=== PATIENT | male | born 1965 | race American Indian/Alaskan Native ===

== ENCOUNTER 2016-08-19 15:22 | Inpatient (IN) | payer MEDICARE, MEDICAID ==
[2016-08-19 15:22] VITALS: BMI 23.7
[2016-08-19] MEDS ORDERED: Sodium Chloride 0.9% 1,000 ML IV ONE (16:10)
[2016-08-19] MEDS ORDERED: Sodium Chloride 0.9% 1,000 ML ONE (16:22)
--- NOTE | 2016-08-19 16:31 | RAD ---
HISTORY: Diabetic COMPARISON: Chest x-ray performed 12/23/12 TECHNIQUE: Chest, one view. FINDINGS: Examination limited by habitus. LUNGS: Bibasilar atelectasis or infiltrates. Small left pleural effusion. No definite pneumothorax. Please note that chest x-ray has limited sensitivity for the detection of pulmonary masses. CARDIOVASCULAR: Cardiomegaly. OSSEOUS STRUCTURES: Degenerative changes. VISUALIZED UPPER ABDOMEN: Unremarkable. OTHER FINDINGS: None. IMPRESSION: Small bibasilar atelectasis or infiltrates. Small left pleural effusion. Cardiomegaly.
[2016-08-19 16:40] LABS: BASO % 0.6 % (0.0-2.0); EOS # 0.2 K/uL (0.0-0.7); HEMATOCRIT 43.5 % (35.0-51.0); LYMPH # 2.5 K/uL (1.0-4.3); MEAN CELL VOLUME 87.3 fL (80.0-94.0); MEAN CORPUSCULAR HEMOGLOBIN 28.7 pg (27.0-31.0); MEAN CORPUSCULAR HGB CONC 32.9 g/dL (33.0-37.0); MEAN PLATELET VOLUME 11.4 fL (7.2-11.7); NRBC % 0.1 % (0.0-2.0); RED CELL DISTRIBUTION WIDTH 13.8 % (11.5-14.5); WHITE BLOOD COUNT 7.7 K/uL (4.8-10.8)
[2016-08-19 16:57] LABS: RBC URINE < 1 /hpf (0-3); URINE BACTERIA RARE (<OCC); URINE BILIRUBIN NEGATIVE (NEGATIVE); URINE BLOOD NEGATIVE (NEGATIVE); URINE COLOR Straw (YELLOW); URINE GLUCOSE (UA) 3+ mg/dL (Normal); URINE KETONE TRACE mg/dL (NEGATIVE); URINE LEUKOCYTE ESTERASE NEG Leu/uL (Negative); URINE PROTEIN NEGATIVE (NEGATIVE); URINE UROBILINOGEN NORMAL mg/dL (0.2-1.0)
[2016-08-19 17:00] LABS: CHLORIDE 93 mmol/L (98-107)
[2016-08-19 17:01] LABS: POTASSIUM 4.8 mmol/L (3.6-5.2); SODIUM 136 mmol/L (132-148)
[2016-08-19 17:03] LABS: ALB/GLOB RATIO 1.2 (1.0-2.1); AST/SGOT 35 U/L (17-59); BILIRUBIN,TOTAL 1.1 mg/dL (0.2-1.3); BLOOD UREA NITROGEN 15 mg/dL (9-20); CARBON DIOXIDE 28 mmol/L (22-30); GFR AFRICAN-AMERICAN > 60; TOTAL PROTEIN 7.6 g/dL (6.3-8.3)
[2016-08-19 17:04] LABS: ALKALINE PHOSPHATASE 130 U/L (38-126); ALT/SGPT 16 U/L (21-72); CALCIUM 8.4 mg/dl (8.6-10.4)
[2016-08-19 17:09] LABS: GLUCOSE,RANDOM 472 mg/dL (75-110)
--- NOTE | 2016-08-19 19:20 | C.PDOC ---
History Of Present Illness 51 y/o male presents to the ED with complains of hyperglycemia. Pt was seen by Dr Lopez with BGL in 400s, advised to go to ED for evaluation. states patient's BGL is typically in the high 200s but over the past few weeks has been in low 300s. Pt is taking same medications, no changes. Denies fever, chills, headache, vomiting or non compliance . Time Seen by Provider: 08/19/16 16:04 Chief Complaint (Nursing): High Blood Sugar History Per: Patient History/Exam Limitations: no limitations Severity: Mild Associated Infectious Symptoms: denies: Nausea, Vomiting Treatment Prior To Provider Evaluation: None Recent travel outside of the [place]: No Past Medical History Reviewed: Historical Data, Nursing Documentation, Vital Signs Vital Signs: Last Vital Signs Temp 98.3 F 08/19/16 15:53 Pulse 73 08/19/16 15:53 Resp 97 H 08/19/16 15:53 BP 111/73 08/19/16 15:53 Pulse Ox 20 L 08/19/16 19:27 - Medical History PMH: Asthma, Diabetes, HTN Surgical History: Cholecystectomy Family History: States: Unknown Family Hx - Social History Hx Tobacco Use: Yes Hx Alcohol Use: No Hx Substance Use: No - Immunization History Hx Pneumococcal Vaccination: Yes Review Of Systems Except As Marked, All Systems Reviewed And Found Negative. Constitutional: Negative for: Fever, Chills Gastrointestinal: Negative for: Vomiting Neurological: Negative for: Headache Physical Exam - Physical Exam Appears: Non-toxic, No Acute Distress Skin: Warm, Dry, No Rash Head: Atraumatic, Normacephalic Nose: Normal Oral Mucosa: Moist Neck: Normal ROM, Supple Chest: Symmetrical Cardiovascular: Rhythm Regular, No Murmur Respiratory: Normal Breath Sounds, No Rales, No Rhonchi, No Wheezing Gastrointestinal/Abdominal: Soft, No Tenderness, No Guarding Neurological/Psych: Oriented x3, Normal Speech Gait: Steady ED Course And Treatment - Laboratory Results Result Diagrams: 08/19/16 16:35 08/19/16 16:35 O2 Sat by Pulse Oximetry: 20 (on room air) Pulse Ox Interpretation: Normal (Entered in error, 97 pulse ox*) - Other Rad CXR X-Ray: Viewed By Me, Read By Radiologist Interpretation: Accession No. : [id number]. Patient Name / ID : MORALES TAM / [id number]. Exam Date : 08/19/2016 16:21:05 ( Approved ). Study Comment : Sex / Age : M / 51Y. Creator : Criselda Doshi MD. Dictator : Criselda Doshi MD. Real Estate Representative : Rn Delivery : Criselda Doshi MD. Approver2 : Report Date : 08/19/2016 16:29:17. My Comment : . HISTORY: Diabetic. COMPARISON: Chest x-ray performed 12/23/12. TECHNIQUE: Chest, one view. FINDINGS: Examination limited by habitus. LUNGS : Bibasilar atelectasis or infiltrates. Small left pleural effusion. No definite pneumothorax. Please note that chest x-ray has limited sensitivity for the detection of pulmonary masses. CARDIOVASCULAR: Cardiomegaly. OSSEOUS STRUCTURES: Degenerative changes. VISUALIZED UPPER ABDOMEN: Unremarkable. OTHER FINDINGS: None. IMPRESSION: Small bibasilar atelectasis or infiltrates. Small left pleural effusion. Cardiomegaly. Progress Note: Medicated with insulin and fluids Medical Decision Making Medical Decision Making: Plan: EKG, IV fluids, CXR, labs, UA sugar down to mid 300's Case discussed with dr Boo, recommended observation to start insulin Disposition - Disposition Disposition: HOSPITALIZED Disposition Time: 18:30 Condition: GOOD - Clinical Impression Clinical Impression: Hyperglycemia - Scribe Statement The provider has reviewed the documentation as recorded by the Maryellen Cotto Provider Attestation: All medical record entries made by the Maryellen were at my direction and personally dictated by me. I have reviewed the chart and agree that the record accurately reflects my personal performance of the history, physical exam, medical decision making, and the department course for this patient. I have also personally directed, reviewed, and agree with the discharge instructions and disposition. Decision To Admit - Pt Status Changed To: Hospital Disposition Of: Observation - . Bed Request Type: Regular Admitting Physician: Eduardo Lopez Patient Diagnosis: Hyperglycemia
[2016-08-19] MEDS ORDERED: diltiaZEM 240 mg/24 Hours CD Cap PO SCH (22:00)
[2016-08-19] MEDS ORDERED: Divalproex 500 mg ER Tab PO SCH (22:00)
[2016-08-19] MEDS: (Novolog) Insulin Aspart, Recombinant 100 u/ml 10 ml vial SC SCH (22:37)
[2016-08-20] MEDS: (Novolog) Insulin Aspart, Recombinant 100 u/ml 10 ml vial SC SCH (08:18)
[2016-08-20 12:05] LABS: HEMATOCRIT 44.7 % (35.0-51.0); MEAN CELL VOLUME 87.5 fL (80.0-94.0); MEAN CORPUSCULAR HEMOGLOBIN 28.8 pg (27.0-31.0); MEAN CORPUSCULAR HGB CONC 32.9 g/dL (33.0-37.0); MEAN PLATELET VOLUME 11.1 fL (7.2-11.7); RED CELL DISTRIBUTION WIDTH 13.7 % (11.5-14.5); WHITE BLOOD COUNT 6.3 K/uL (4.8-10.8)
[2016-08-20 12:15] LABS: CHLORIDE 95 mmol/L (98-107); POTASSIUM 3.7 mmol/L (3.6-5.2); SODIUM 138 mmol/L (132-148)
[2016-08-20 12:17] LABS: ALB/GLOB RATIO 1.2 (1.0-2.1); BILIRUBIN,TOTAL 0.6 mg/dL (0.2-1.3); CARBON DIOXIDE 27 mmol/L (22-30); CHOLESTEROL 172 mg/dL (0-199); GFR AFRICAN-AMERICAN > 60; TOTAL PROTEIN 7.2 g/dL (6.3-8.3)
[2016-08-20 12:18] LABS: ALKALINE PHOSPHATASE 100 U/L (38-126); ALT/SGPT 24 U/L (21-72); AST/SGOT 23 U/L (17-59); BLOOD UREA NITROGEN 11 mg/dL (9-20); GLUCOSE,RANDOM 388 mg/dL (75-110)
[2016-08-20] MEDS: Pantoprazole 40 mg EC Tab PO SCH (12:36)
[2016-08-20] MEDS: diltiaZEM 240 mg/24 Hours CD Cap PO SCH (12:37)
[2016-08-20] MEDS: Divalproex 500 mg ER Tab PO SCH ×3 (12:38→19:11)
[2016-08-20] MEDS: (Novolin R) Insulin Human Regular 100 units/ml vial SC SCH ×5 (12:39→22:02)
--- NOTE | 2016-08-20 14:38 | CON ---
DATE: 08/20/2016 CHIEF COMPLAINT AND REASON FOR CONSULTATION: The patient referred by Dr. Lopez. The patient has history of schizophrenia and was admitted for uncontrolled diabetes. The patient is on multiple psych meds. HISTORY OF PRESENT ILLNESS: This is the case of a 51-year-old male with history of schizophrenia, has been taking Risperdal since 2012. The patient has been followed by Dr. Lopez and patient was referred here for admission for uncontrolled diabetes. According to the mother, who has been checking the patient's blood sugar, the sugar has been running as high as 400-500 for the last 2 weeks. The patient has been on psych medication for since 2012 after his admission in [facility], where he was there also for outpatient followup and completed it, but not currently seeing a psychiatrist. The patient is taking Risperdal 1 mg b.i.d., Depakote 500 mg 3 times a day. The patient was also given Ativan 1 mg at bedtime and also Viibryd 20 mg at bedtime. The patient states he is not depressed, but concerned about his uncontrolled diabetes. According to the mother, patient has been drinking soda and also while in the hospital, according to the staff, he has been drinking a lot of juices. The patient also eats a lot of carbohydrates. He said he is feeling very hungry since taking Depakote. Mother is asking for some adjustment of patient's meds, especially since the patient is diabetic. According to the patient, he was not a diabetic prior to treatment with psych medications for his schizophrenia. Today, he is calm, cooperative. He said he will try to cut down drinking soda and juices as well as to cut down eating bread. He is calm. He is seen in the room, seen with his mom and cooperative. The patient is aware that his hemoglobin A1c is markedly elevated. It was 12 , but he is not exhibiting any psychosis at this time. No hallucinations, no paranoia and sleeping and has a very voracious appetite. PAST PSYCHIATRIC HISTORY: History of schizophrenia. He used to hear voices in the past, but has not been hearing voices. History of psych admission in [facility] and outpatient program. No suicidal history. ALLERGIES: No known drug allergies. DRUG AND ALCOHOL HISTORY: Denies any. PAST MEDICAL HISTORY: History of hyperglycemia. FAMILY HISTORY: There is history of patient's dad was diabetic. CURRENT MEDICATIONS: List includes Cozaar, Crestor, Depakote 500 mg 3 times a day, Lantus, Novolin, Protonix, Risperdal 1 mg b.i.d., Tricor. VITAL SIGNS: Temperature is 98.2, pulse rate is 93, blood pressure is 113/78, respirations 20, oxygen sat is 96%. LABORATORIES: On review, on admission the blood sugar was 472. The random blood sugar is 388. Hemoglobin A1c is markedly elevated at 12. His creatinine is 0.9, GFR is still greater than 60. Triglycerides are 371, cholesterol is 172. UA is +3 for glucose. Toxicology, negative for drugs. REVIEW OF SYSTEMS: GENERAL: The patient is alert, oriented x 3, calm, seen with his mother. The patient is aware that he is diabetic. SKIN: No pruritus. HEENT: No headache, no dizziness. NECK: Supple. RESPIRATORY: No dyspnea. CARDIOVASCULAR: No chest pain. GASTROINTESTINAL: The patient is complaining he is always hungry. EXTREMITIES: The patient is ambulatory. MUSCULOSKELETAL: Weakness improving. NEUROLOGIC: Alert and oriented x 3. GENITOURINARY: Complaining of frequent urination. MENTAL STATUS EXAMINATION: A burly-looking male who looks stated age. He is about 5 feet 5 inches and weighs 235 pounds. Oriented x 3. Speech spontaneous. Affect is reactive. Mood is calm. Thought process coherent. Thought content: No hallucinations, no suicidal or homicidal ideation, no paranoia. Attention and memory seem to be fair. Insight and judgment fair. Impulse control is fair. IMPRESSION: History of chronic paranoid schizophrenia as well as uncontrolled diabetes. PLAN AND RECOMMENDATION: The patient seen, meds reviewed. We will continue the Risperdal 1 mg b.i.d. and Depakote 500 mg p.o. t.i.d. for now. We will keep patient off the Ativan 1 mg at bedtime and the Viibryd, which he was taking at home. The patient is made aware as well as the mother that the Risperdal he has been taking can cause him to have diabetes as a side effect. The patient has a history of chronic mental illness and needs this Risperdal right now. Otherwise, the patient will decompensate and start hearing voices, but patient is aware of the need of taking Risperdal as well as the possible side effects of having uncontrolled blood sugar as a result of the maintenance treatment of his Risperdal for schizophrenia. May continue the Depakote 500 mg p.o. t.i.d. for mood stabilization; however, this medicine can increase his appetite, which might make the blood sugar difficult to control, but patient needs this and has been taking this for a while for mood stabilization. Also, monitor his Depakote level, CBC, liver function test. 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 The patient will need diabetic teaching, especially in his diet as patient needs to watch and be more careful of what he eats, especially that he is having uncontrolled diabetes and also taking psych medications, which can increase his appetite. The patient states he is always hungry. Continue treatment plan as outlined. Jarad Sharma MD cc: [id number] TT: 08/20/2016 14:37:26 Confirmation # [id number] Dictation # [id number] en MTDD
[2016-08-20] MEDS ORDERED: (Lantus) Insulin Glargine, Recombinant SC SCH (22:00)
--- NOTE | 2016-08-20 22:10 | CP.PCM.CON ---
History of Present Illness - History of Present Illness History of Present Illness: uncontrolled DM Past Patient History - Past Social History Smoking Status: Current Some Days Smoker - CARDIAC Hx Hypertension: Yes - PULMONARY Hx Asthma: Yes - ENDOCRINE/METABOLIC Hx Diabetes Mellitus Type 2: Yes - MUSCULOSKELETAL/RHEUMATOLOGICAL Hx Falls: No - PSYCHIATRIC Hx Substance Use: No - SURGICAL HISTORY Hx Cholecystectomy: Yes - ANESTHESIA Hx Anesthesia: Yes Hx Anesthesia Reactions: Yes Hx Malignant Hyperthermia: Yes Has any member of the family had a problem w/ anesthesia?: No Meds Allergies/Adverse Reactions: Allergies Allergy/AdvReac Type Severity Reaction Status Date / Time No Known Allergies Allergy Unverified 12/12/12 10:04 - Medications Medications: Current Medications Diltiazem HCl (Cardizem Cd) 240 mg PO DAILY [facility] Last Admin: 08/20/16 12:37 Dose: 240 mg Divalproex Sodium (Depakote Er) 500 mg PO TID [facility] Last Admin: 08/20/16 19:11 Dose: 500 mg Fenofibrate (Tricor) 145 mg PO QPM [facility] Last Admin: 08/20/16 17:57 Dose: 145 mg Heparin Sodium (Porcine) (Heparin) 5,000 units SC Q12H [facility] Last Admin: 08/20/16 17:58 Dose: 5,000 units Influenza Virus Vaccine (Afluria) 45 mcg IM .ONCE ONE Stop: 08/21/16 10:01 Insulin Glargine (Lantus) 15 unit SC HS [facility] Last Admin: 08/20/16 22:03 Dose: 15 units Insulin Human Regular (Novolin R) 0 unit SC ACHS [facility] PRN Reason: Protocol Last Admin: 08/20/16 22:02 Dose: 2 unit Insulin Human Regular (Novolin R) 4 unit SC TIDAC [facility] Last Admin: 08/20/16 16:40 Dose: 4 unit Losartan Potassium (Cozaar) 100 mg PO DAILY [facility] Last Admin: 08/20/16 12:42 Dose: 100 mg Metoprolol Tartrate (Lopressor) 25 mg PO BID [facility] Last Admin: 08/20/16 17:58 Dose: 25 mg Pantoprazole Sodium (Protonix Ec Tab) 40 mg PO DAILY [facility] Last Admin: 08/20/16 12:36 Dose: 40 mg Pneumococcal Polyvalent Vaccine (Pneumovax 23 Vaccine) 0.5 ml IM .ONCE ONE Stop: 08/21/16 10:01 Risperidone (Risperdal Tab) 1 mg PO BID [facility] Last Admin: 08/20/16 17:58 Dose: 1 mg Rosuvastatin Calcium (Crestor) 10 mg PO HS [facility] Last Admin: 08/20/16 22:01 Dose: 10 mg Results - Vital Signs Recent Vital Signs: Last Vital Signs Temp 98.2 F 08/20/16 16:00 Pulse 93 H 08/20/16 17:19 Resp 20 08/20/16 16:00 BP 148/90 08/20/16 17:58 Pulse Ox 97 08/20/16 16:00 - Labs Result Diagrams: 08/20/16 11:58 08/20/16 11:58 Labs: Laboratory Results - last 24 hr 08/20/16 21:32 POC Glucose (mg/dL) 389 H Assessment & Plan (1) Uncontrolled diabetes mellitus Assessment and Plan: Endocrine consult reason for consult: uncontrolled diabetes Mr. Valdez is 51 y/o admitted for hyperglycemia , found with glucose 472 ( refered by PCP ) glucose in 200-300 @ home with polyuria & polydepsia as per pt. has DM 2016 (-) neuropathy , (-) retinopathy , (-) nephropathy , outpatient diabetes management regimen : not sure of medications inpatient diabetes management regimen : novolog scale blood glucose log : 200-300 NO hypoglycemia Allergy NKDA Past medical history : HTN Past surgical history : cholecystectomy Psychiatry history : (+) psychiatry disorder Social history : denies smoking , ETOH use , illicit drug use Family history : father with DM ROS: Constitutional: denies fever ,tiredness/weakness .HEENT: denies earache, change in voice .Respiratory: denies cough, sob . CVS :no chest pain, no palpitations . Abdomen : no abdominal pain, no nausea /vomiting , no change bowel movement . 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 Extremities : no edema , no tremors . Skin: no itching, no rash Physical exam Well developed AAO x3 , ,NAD VSS HEENT: norm cephalic, atraumatic , no lid lag , no exophthalmos NECK: supple, no palpable lymphadenopathy THYROID: no palpable thyromegaly , not tender CHEST: fair air entry, bilateral, CVS: S1,S2 ABDOMEN: bowel sound present, benign, obese, no wide purple striae , no bruises EXTREMITIES: no edema, clubbing or cyanosis, no palpable hand tremors Skin : acanthosis nigricans lab: tsh 1.38 a1c 12 , cmp wnl , tg 371, ldl 88 Assessment uncontrolled DM hypertriglyceridemia obesity plan start lantus 15 units @ 9pm daily d/c Novolog start Novoloin R low dose coverage, no 3 am coverage start novoloin R 4 units tid with meals if eat > 60% start metformin 500 mg po tid with meals low fat diet on fenofiberate qd diabetic & nutrtional evalustion insulin injection education will monitor Status: Acute (2) Obesity (BMI 30-39.9) Status: Acute (3) Hypertriglyceridemia Status: Acute
[2016-08-21] MEDS: (Novolin R) Insulin Human Regular 100 units/ml vial SC SCH ×7 (09:09→21:39)
[2016-08-21] MEDS: Pantoprazole 40 mg EC Tab PO SCH (09:11)
[2016-08-21] MEDS: Divalproex 500 mg ER Tab PO SCH ×3 (09:11→17:23)
[2016-08-21] MEDS: diltiaZEM 240 mg/24 Hours CD Cap PO SCH (09:12)
[2016-08-21] MEDS ORDERED: Pneumococcal 23-Valent Vaccine IM ONE (10:00)
[2016-08-21] MEDS ORDERED: Influenza Virus Vaccine 45 mcg/0.5 ml Syr IM ONE (10:00)
--- NOTE | 2016-08-21 15:01 | CARD ---
APPROVED REPORT EKG Measurement Heart [id number] ND 190P50 [id number] <Conclusion> Normal sinus rhythm Incomplete right bundle branch block Cannot rule out Inferior infarct, age undetermined Abnormal ECG
--- NOTE | 2016-08-21 16:29 | PN ---
DATE: 08/21/2016 SUBJECTIVE: The patient is seen. The patient's blood sugar seems to be improving, in the high 200s. TSH is 1.38. 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 The patient states that he is able to give insulin by himself. The patient advised also to follow his diet restriction. Psych-aguirre, the patient is not exhibiting any psychotic symptoms at this time. He is stable on Risperdal and Depakote. The patient advised to watch his diet as both medications can increase the appetite. He is not exhibiting any psych symptoms at this time. VITAL SIGNS: Temperature is 98, pulse rate 79, blood pressure 125/77, respirations 20, oxygen sat is 97%. REVIEW OF SYSTEMS: GENERAL: Alert and oriented x 3, seen in his room, resting. Not in acute respiratory distress. SKIN: No diaphoresis. HEENT: No headache, no dizziness. NECK: Supple. RESPIRATORY: No dyspnea. CARDIOVASCULAR: No chest pain. GASTROINTESTINAL: No nausea, no vomiting. The patient states that he is able to control his craving for food. EXTREMITIES: No tremors. MUSCULOSKELETAL: Feels weak. NEUROLOGIC: Alert, oriented x 3. GENITOURINARY: No complaining of dysuria, but still has polyuria. MENTAL STATUS EXAMINATION: A burly-looking male who looks stated age, oriented x 3. Speech spontaneous. Affect is reactive. Mood is calm. Thought process coherent. Thought content: No hallucinations, no paranoia, no suicidal or homicidal ideation. Attention and memory seems to be fair. Insight and judgment fair. Impulse control is fair. The patient has been compliant with his psychiatric medications. IMPRESSION: History of chronic paranoid schizophrenia as well as uncontrolled diabetes. PLAN AND RECOMMENDATIONS: The patient seen, meds reviewed. Continue present psych meds. The patient is on Depakote and Risperdal. The patient has been followed by Dr. Alexander for his diabetes. Monitor blood sugar. Continue treatment plan as outlined. Jarad Sharma MD cc: [id number] TT: 08/21/2016 16:28:30 Confirmation # [id number] Dictation # [id number] [facility]
[2016-08-21] MEDS ORDERED: (Lantus) Insulin Glargine, Recombinant SC SCH (19:36)
--- NOTE | 2016-08-21 19:42 | CP.PCM.PN ---
Subjective - Date & Time of Evaluation Date of Evaluation: 08/21/16 Time of Evaluation: 19:40 - Subjective Subjective: uncontrolled dm Objective - Vital Signs/Intake and Output Vital Signs (last 24 hours): Temp Pulse Resp BP Pulse Ox 98 F 79 23 143/87 94 L 08/21/16 16:00 08/21/16 16:00 08/21/16 16:00 08/21/16 17:23 08/21/16 16:00 Intake and Output: 08/21/16 08/22/16 18:59 06:59 Intake Total 500 Balance 500 - Medications Medications: Current Medications Diltiazem HCl (Cardizem Cd) 240 mg PO DAILY [facility] Last Admin: 08/21/16 09:12 Dose: 240 mg Divalproex Sodium (Depakote Er) 500 mg PO TID [facility] Last Admin: 08/21/16 17:23 Dose: 500 mg Fenofibrate (Tricor) 145 mg PO QPM [facility] Last Admin: 08/20/16 17:57 Dose: 145 mg Heparin Sodium (Porcine) (Heparin) 5,000 units SC Q12H [facility] Last Admin: 08/21/16 17:23 Dose: 5,000 units Insulin Glargine (Lantus) 18 unit SC HS [facility] Insulin Human Regular (Novolin R) 0 unit SC ACHS [facility] PRN Reason: Protocol Last Admin: 08/21/16 17:31 Dose: 4 unit Insulin Human Regular (Novolin R) 7 unit SC TIDAC [facility] Losartan Potassium (Cozaar) 100 mg PO DAILY [facility] Last Admin: 08/21/16 09:12 Dose: 100 mg Metformin HCl (Glucophage) 500 mg PO TID [facility] Last Admin: 08/21/16 17:24 Dose: 500 mg Metoprolol Tartrate (Lopressor) 25 mg PO BID [facility] Last Admin: 08/21/16 17:23 Dose: 25 mg Pantoprazole Sodium (Protonix Ec Tab) 40 mg PO DAILY [facility] Last Admin: 08/21/16 09:11 Dose: 40 mg Risperidone (Risperdal Tab) 1 mg PO BID [facility] Last Admin: 08/21/16 17:24 Dose: 1 mg Rosuvastatin Calcium (Crestor) 10 mg PO HS [facility] Last Admin: 08/20/16 22:01 Dose: 10 mg Assessment and Plan (1) Uncontrolled diabetes mellitus Assessment & Plan: Endocrine consult f/u reason for consult: uncontrolled diabetes Mr. Valdez is 51 y/o admitted for hyperglycemia , found with glucose 472 ( refered by PCP ) glucose in 200-300 @ home with polyuria & polydepsia as per pt. has DM 2016 (-) neuropathy , (-) retinopathy , (-) nephropathy , outpatient diabetes management regimen : not sure of medications inpatient diabetes management regimen : novolog scale blood glucose log : 200-300 NO hypoglycemia Allergy NKDA Past medical history : HTN Past surgical history : cholecystectomy Psychiatry history : (+) psychiatry disorder Social history : denies smoking , ETOH use , illicit drug use Family history : father with DM ROS: Constitutional: denies fever ,tiredness/weakness .HEENT: denies earache, change in voice .Respiratory: denies cough, sob . CVS :no chest pain, no palpitations . Abdomen : no abdominal pain, no nausea /vomiting , no change bowel movement . 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 Extremities : no edema , no tremors . Skin: no itching, no rash Physical exam Well developed AAO x3 , ,NAD VSS HEENT: norm cephalic, atraumatic , no lid lag , no exophthalmos NECK: supple, no palpable lymphadenopathy THYROID: no palpable thyromegaly , not tender CHEST: fair air entry, bilateral, CVS: S1,S2 ABDOMEN: bowel sound present, benign, obese, no wide purple striae , no bruises EXTREMITIES: no edema, clubbing or cyanosis, no palpable hand tremors Skin : acanthosis nigricans lab: tsh 1.38 a1c 12 , cmp wnl , tg 371, ldl 88 Assessment uncontrolled DM hypertriglyceridemia obesity plan increase lantus 18 units @ 9pm daily continue Novoloin R low dose coverage, no 3 am coverage increase novoloin R 7 units tid with meals if eat > 60% continue metformin 500 mg po tid with meals low fat diet on fenofiberate qd diabetic & nutrtional evalustion insulin injection education will monitor Status: Acute (2) Obesity (BMI 30-39.9) Status: Acute (3) Hypertriglyceridemia Status: Acute
[2016-08-22 07:41] LABS: CHLORIDE 99 mmol/L (98-107)
[2016-08-22 07:42] LABS: POTASSIUM 3.6 mmol/L (3.6-5.2); SODIUM 138 mmol/L (132-148)
[2016-08-22 07:44] LABS: BILIRUBIN,TOTAL 0.7 mg/dL (0.2-1.3); CARBON DIOXIDE 24 mmol/L (22-30); GFR AFRICAN-AMERICAN > 60
[2016-08-22 07:45] LABS: ALB/GLOB RATIO 1.2 (1.0-2.1); ALKALINE PHOSPHATASE 90 U/L (38-126); ALT/SGPT 26 U/L (21-72); AST/SGOT 18 U/L (17-59); BLOOD UREA NITROGEN 15 mg/dL (9-20); CALCIUM 8.6 mg/dl (8.6-10.4); GLUCOSE,RANDOM 310 mg/dL (75-110); TOTAL PROTEIN 6.3 g/dL (6.3-8.3)
[2016-08-22 07:46] LABS: BASO % 0.8 % (0.0-2.0); EOS # 0.2 K/uL (0.0-0.7); EOS % 2.7 % (0.0-4.0); HEMATOCRIT 42.3 % (35.0-51.0); LYMPH # 2.4 K/uL (1.0-4.3); MEAN CELL VOLUME 86.2 fL (80.0-94.0); MEAN CORPUSCULAR HGB CONC 33.6 g/dL (33.0-37.0); MEAN PLATELET VOLUME 11.9 fL (7.2-11.7); MONO # 0.7 K/uL (0.0-0.8); MONO % 10.5 % (0.0-10.0); NRBC % 0.1 % (0.0-2.0); RED CELL DISTRIBUTION WIDTH 13.8 % (11.5-14.5); WHITE BLOOD COUNT 6.4 K/uL (4.8-10.8)
[2016-08-22] MEDS: (Novolin R) Insulin Human Regular 100 units/ml vial SC SCH ×7 (08:24→21:33)
[2016-08-22] MEDS: Divalproex 500 mg ER Tab PO SCH ×3 (10:34→17:17)
[2016-08-22] MEDS: Pantoprazole 40 mg EC Tab PO SCH (10:35)
[2016-08-22] MEDS: diltiaZEM 240 mg/24 Hours CD Cap PO SCH (10:35)
--- NOTE | 2016-08-22 13:59 | PN ---
DATE: 08/22/2016 SUBJECTIVE: The patient is seen. The patient, psych aguirre, is in control. However, his blood sugar is still markedly elevated. Last blood sugar was above 300, The patient is insisting he is not cheating on his diet. The patient also claims he is able to administer insulin by himself, but according to the mother, patient cannot do it. The patient has a history of schizophrenia and needs help from his mom, especially if he is going to have insulin treatment. The patient claims he can give insulin, but has not tried. The patient also has history of noncompliance with diet restriction. He claims he is always hungry. I did discuss with the patient as well as with the mother about his psych medication and its side effect, which can increase appetite, we will try to control his diabetes first before we change his psych medication. He has been stable on his medicine for years and I am afraid that he might psychiatrically decompensate if I will change the medicine, which will make the situation worse. He is sleeping and eating well and we will keep him on the current dose of Depakote and Risperdal and just treat his diabetes for now. VITAL SIGNS: Temperature is 97.6, pulse rate is 85, blood pressure 133/78, respirations 20, oxygen sat is 97%. REVIEW OF SYSTEMS: GENERAL: He was seen in his room, eating. The patient is made aware his blood sugar is still elevated and patient insisting he is not cheating on his diet and not drinking a lot of juices. SKIN: No diaphoresis. HEENT: No blurring vision, no headache. NECK: Supple. RESPIRATORY: No dyspnea. CARDIOVASCULAR: No chest pain. GASTROINTESTINAL: He has very good appetite. No nausea, no vomiting. EXTREMITIES: The patient is ambulatory. GENITOURINARY: He still has polyuria. MUSCULOSKELETAL: Weakness improving. NEUROLOGIC: Alert and oriented x 3. MENTAL STATUS EXAMINATION: Burly looking male who looks stated age, oriented x 3. Mood is calm. Affect is reactive. Speech spontaneous. Thought process coherent. Thought content: No paranoia. No suicidal or homicidal ideation. No hallucinations. Attention and memory seem to be fair. Insight and judgment limited. Impulse control is fair at this time. IMPRESSION: History of chronic paranoid schizophrenia as well as uncontrolled diabetes. PLAN AND RECOMMENDATIONS: The patient seen, meds reviewed. Continue present psych meds. We will monitor his blood sugar. Also, patient has been followed by Dr. Alexander, who would like to do a Depakote level on him as the patient is taking Depakote. Jarad Sharma MD cc: [id number] TT: 08/22/2016 13:59:00 Confirmation # [id number] Dictation # [id number] en MTDD
[2016-08-22] MEDS ORDERED: (Lantus) Insulin Glargine, Recombinant SC SCH ×2 (21:05→22:00)
--- NOTE | 2016-08-22 21:14 | CP.PCM.PN ---
Subjective - Date & Time of Evaluation Date of Evaluation: 08/22/16 Time of Evaluation: 21:11 - Subjective Subjective: uncontrolled dm Objective - Vital Signs/Intake and Output Vital Signs (last 24 hours): Temp Pulse Resp BP Pulse Ox 98.2 F 82 20 144/88 96 08/22/16 16:00 08/22/16 16:00 08/22/16 16:00 08/22/16 16:00 08/22/16 16:00 Intake and Output: 08/22/16 08/23/16 18:59 06:59 Intake Total 600 Balance 600 - Medications Medications: Current Medications Diltiazem HCl (Cardizem Cd) 240 mg PO DAILY [facility] Last Admin: 08/22/16 10:35 Dose: 240 mg Divalproex Sodium (Depakote Er) 500 mg PO TID [facility] Last Admin: 08/22/16 17:17 Dose: 500 mg Fenofibrate (Tricor) 145 mg PO QPM [facility] Last Admin: 08/22/16 17:17 Dose: 145 mg Heparin Sodium (Porcine) (Heparin) 5,000 units SC Q12H [facility] Last Admin: 08/22/16 17:17 Dose: 5,000 units Insulin Glargine (Lantus) 20 unit SC HS [facility] Insulin Human Regular (Novolin R) 0 unit SC ACHS [facility] PRN Reason: Protocol Last Admin: 08/22/16 17:18 Dose: 3 unit Insulin Human Regular (Novolin R) 7 unit SC TIDAC [facility] Last Admin: 08/22/16 17:19 Dose: 7 unit Losartan Potassium (Cozaar) 100 mg PO DAILY [facility] Last Admin: 08/22/16 10:36 Dose: 100 mg [facility] Metoprolol Tartrate (Lopressor) 25 mg PO BID [facility] Last Admin: 08/22/16 10:36 Dose: 25 mg Pantoprazole Sodium (Protonix Ec Tab) 40 mg PO DAILY [facility] Last Admin: 08/22/16 10:35 Dose: 40 mg Risperidone (Risperdal Tab) 1 mg PO BID [facility] Last Admin: 08/22/16 17:17 Dose: 1 mg Rosuvastatin Calcium (Crestor) 10 mg PO HS [facility] Last Admin: 08/21/16 21:38 Dose: 10 mg Sitagliptin Phosphate (Januvia) 100 mg PO BRK [facility] - Labs Labs: 08/22/16 07:09 08/22/16 07:09 Assessment and Plan (1) Uncontrolled diabetes mellitus Assessment & Plan: Assessment & Plan: Endocrine consult f/u reason for consult: uncontrolled diabetes Mr. Valdez is 51 y/o admitted for hyperglycemia , found with glucose 472 ( refered by PCP ) glucose in 200-300 @ home with polyuria & polydepsia as per pt. has DM 2016 (-) neuropathy , (-) retinopathy , (-) nephropathy , outpatient diabetes management regimen : not sure of medications inpatient diabetes management regimen : novolog scale blood glucose log : 200 NO hypoglycemia Allergy NKDA Past medical history : HTN Past surgical history : cholecystectomy Psychiatry history : (+) psychiatry disorder Social history : denies smoking , ETOH use , illicit drug use Family history : father with DM ROS: Constitutional: denies fever ,tiredness/weakness .HEENT: denies earache, change in voice .Respiratory: denies cough, sob . CVS :no chest pain, no palpitations . Abdomen : no abdominal pain, no nausea /vomiting , no change bowel movement . MANAGER ADMINISTRATIVE : denies light-headedness, dizziness. Extremities : no edema , no tremors . Skin: no itching, no rash Physical exam Well developed AAO x3 , ,NAD VSS HEENT: norm cephalic, atraumatic , no lid lag , no exophthalmos NECK: supple, no palpable lymphadenopathy THYROID: no palpable thyromegaly , not tender CHEST: fair air entry, bilateral, CVS: S1,S2 ABDOMEN: bowel sound present, benign, obese, no wide purple striae , no bruises EXTREMITIES: no edema, clubbing or cyanosis, no palpable hand tremors Skin : acanthosis nigricans lab: tsh 1.38 a1c 12 , cmp wnl , tg 371, ldl 88 Assessment uncontrolled DM hypertriglyceridemia psychiatry disorder on meds obesity plan increase lantus 20 units @ 9pm daily continue Novoloin R low dose coverage, no 3 am coverage continue novoloin R 7 units tid with meals if eat > 60% increase metformin 1000 mg po bid with meals start januvia 100 mg po qd with breakfast low fat diet on fenofiberate qd diabetic & nutrtional evalustion insulin injection education will monitor Status: Acute (2) Obesity (BMI 30-39.9) Status: Acute (3) Hypertriglyceridemia Status: Acute
--- NOTE | 2016-08-22 22:21 | PN ---
DATE: 08/22/2016 Today, the patient is more alert and awake. Did not have any shortness of breath, no chest pain. Th e patient had no polyuria today and no polydipsia. VITAL SIGNS: The blood pressure is 144/88, pulse 82, respirations 20, temperature 98.2. NECK: Supple. No JVD. LUNGS: Clear. HEART: Regular rate and rhythm. ABDOMEN: Soft, obese, nontender. EXTREMITIES: There are chronic changes of the skin of the lower extremity. The patient had a blood test done. WBC 6.4, hemoglobin 14.2, hematocrit 42.3 and platelet is 144. C hemistry: Sodium 138, potassium 3.6, chloride of 99, bicarbonate is 24, BUN 15, creatinine 0.7. The glucose is elevated at 310, 256, 299. PLAN: We are going to continue the medications, the insulin, and Lantus will be 50 units, and also w e are going to continue the metformin, and lab will be ordered for tomorrow. Eduardo Lopez MD cc: [id number] TT: 08/22/2016 22:20:16 Confirmation # [id number] Dictation # [id number] mn
[2016-08-23 07:55] LABS: CHLORIDE 98 mmol/L (98-107); POTASSIUM 3.7 mmol/L (3.6-5.2); SODIUM 137 mmol/L (132-148)
[2016-08-23 07:57] LABS: BASO % 0.7 % (0.0-2.0); EOS # 0.2 K/uL (0.0-0.7); EOS % 2.7 % (0.0-4.0); GFR AFRICAN-AMERICAN > 60; HEMATOCRIT 44.2 % (35.0-51.0); LYMPH # 2.9 K/uL (1.0-4.3); LYMPH % 40.2 % (20.0-40.0); MEAN CELL VOLUME 85.9 fL (80.0-94.0); MEAN CORPUSCULAR HEMOGLOBIN 29.1 pg (27.0-31.0); MEAN CORPUSCULAR HGB CONC 33.9 g/dL (33.0-37.0); MEAN PLATELET VOLUME 10.9 fL (7.2-11.7); MONO # 0.8 K/uL (0.0-0.8); MONO % 11.9 % (0.0-10.0); NRBC % 0.1 % (0.0-2.0); RED CELL DISTRIBUTION WIDTH 13.7 % (11.5-14.5); WHITE BLOOD COUNT 7.1 K/uL (4.8-10.8)
[2016-08-23 07:58] LABS: ALB/GLOB RATIO 1.2 (1.0-2.1); ALKALINE PHOSPHATASE 82 U/L (38-126); ALT/SGPT 25 U/L (21-72); AST/SGOT 25 U/L (17-59); BILIRUBIN,TOTAL 0.6 mg/dL (0.2-1.3); BLOOD UREA NITROGEN 16 mg/dL (9-20); CALCIUM 9.3 mg/dl (8.6-10.4); CARBON DIOXIDE 24 mmol/L (22-30); GLUCOSE,RANDOM 245 mg/dL (75-110)
--- NOTE | 2016-08-23 08:13 | HP ---
HISTORY OF PRESENT ILLNESS: The patient is a 51-year-old male with history of hypertension, schizoph roro and diabetes. The patient came to my office with the mother and as per mother, the patient ___ _ frequently and the patient mother stated that the patient is drinking a lot of water and also the s ugar was in the range of 300/350-500. So patient was seen in the office and was found to have ____ h igh when testing the sugar. Attempting to show the mother and the patient how to use insulin and the mother does not look understanding well the technique. So we have decided to send the patient to __ __ for control of the diabetes and for diabetic education. ALLERGIES: The patient has no known allergy. PAST MEDICAL HISTORY: History of schizophrenia, hypertension, diabetes, also history of obesity. MEDICATIONS: The patient was on multiple medications, antipsychotic medication like risperidone and taking also metoprolol and glimepiride, metformin, Janumet. SOCIAL HISTORY: Positive for smoking. No alcohol abuse, no illicit drugs. FAMILY HISTORY: Mother alive and father, does not know. REVIEW OF SYSTEMS: ____ RESPIRATORY: No shortness of breath. CARDIOVASCULAR: No chest pain. GASTROINTESTINAL: Polydipsia. GENITOURINARY: Polyuria. NEUROLOGIC: The patient feels somewhat weak. PHYSICAL EXAMINATION: GENERAL: The patient is alert and awake, but the patient is mentally challenged. VITAL SIGNS: Blood pressure was 148/90, pulse 74, respirations 20, temperature 98.2. HEENT: Head is normocephalic, mouth is moist. NECK: Supple. LUNGS: Clear. HEART: Regular rate and rhythm. ABDOMEN: Soft, obese, nontender. EXTREMITIES: There are some chronic changes of the skin of the lower extremity and also there is +1 pitting edema which is also chronic. The patient mostly sleeps on a chair, which is his preference. LABORATORY DATA: WBC 7.7, hemoglobin 14.3, hematocrit 43.5 and platelet is 150. Chemistry: Sodium 138, potassium 3.7, chloride 95, bicarbonate 27, BUN 11, creatinine 0.9, glucose 388, triglycerides 3 71, HDL 29, LDL 28. AST 23, ALT 24, calcium 9, Total Bilirubin 0.6, hemoglobin A1c is 12. The urine glucose is 3+, and the pH is 6 and urine specific gravity is 1.021. So, patient will be admitted with diagnoses of uncontrolled diabetes, hypertension and schizophrenia, obesity. So the patient will have a consult with Medina Hsieh strategic communications specialist. Also, will have a consult with Dr. Sharma of psychiatry. Eduardo Lopez MD cc: [id number] TT: 08/20/2016 18:42:32 jn 08/23/2016 07:12:24
--- NOTE | 2016-08-23 08:21 | PN ---
DATE: 08/21/2016 SUBJECTIVE: Today, the patient is alert and awake, did not have any shortness of breath, no chest pa in but admits is having in the chest and . VITAL SIGNS: The patient has blood pressure 125/77, pulse is 79, respirations 20 and temperature 98. NECK: Supple. No JVD. LUNGS: Clear. HEART: Regular rate and rhythm. Blood test is done and showed that the blood sugar 283 . Consult is appreciated. consult. 106, 32 . Blood test will be ordered . Eduardo Lopez MD cc: [id number] TT: 08/21/2016 17:13:02 Confirmation # [id number] Dictation # [id number] 08/21/2016 22:22:03
[2016-08-23] MEDS: (Novolin R) Insulin Human Regular 100 units/ml vial SC SCH ×5 (08:28→17:15)
[2016-08-23] MEDS: Divalproex 500 mg ER Tab PO SCH ×3 (10:51→17:16)
[2016-08-23] MEDS: diltiaZEM 240 mg/24 Hours CD Cap PO SCH (10:51)
[2016-08-23] MEDS: Pantoprazole 40 mg EC Tab PO SCH (10:54)
--- NOTE | 2016-08-23 13:08 | CP.PCM.PN ---
Subjective - Date & Time of Evaluation Date of Evaluation: 08/23/16 Time of Evaluation: 10:45 - Subjective Subjective: Pt seen today with Dr. Lopez, comfortable , denies any complaints bs controlled with current regimen Mother taught how to administer insulin ( sergeyo instruction) and successfully returns demonstration All prescription sent to Patient pharmacy and mother instructed to lease picker from pharmacy VNA service arranged for diabetic teaching and insulin administration at home, Objective - Vital Signs/Intake and Output Vital Signs (last 24 hours): Temp Pulse Resp BP Pulse Ox 97.9 F 81 18 145/97 H 97 08/23/16 08:00 08/23/16 08:00 08/23/16 08:00 08/23/16 10:50 08/23/16 08:00 Intake and Output: 08/23/16 08/23/16 06:59 18:59 Intake Total 250 Balance 250 - Medications Medications: Current Medications Diltiazem HCl (Cardizem Cd) 240 mg PO DAILY [facility] Last Admin: 08/23/16 10:51 Dose: 240 mg Divalproex Sodium (Depakote Er) 500 mg PO TID [facility] Last Admin: 08/23/16 10:51 Dose: 500 mg Fenofibrate (Tricor) 145 mg PO QPM [facility] Last Admin: 08/22/16 17:17 Dose: 145 mg Insulin Glargine (Lantus) 20 unit SC HS [facility] Last Admin: 08/22/16 21:32 Dose: 20 u Insulin Human Regular (Novolin R) 0 unit SC ACHS [facility] PRN Reason: Protocol Last Admin: 08/23/16 12:24 Dose: 2 unit Insulin Human Regular (Novolin R) 7 unit SC TIDAC [facility] Last Admin: 08/23/16 12:25 Dose: 7 unit Losartan Potassium (Cozaar) 100 mg PO DAILY [facility] Last Admin: 08/23/16 10:50 Dose: 100 mg Metformin HCl (Glucophage) 1,000 mg PO BIDCC [facility] Last Admin: 08/23/16 08:29 Dose: 1,000 mg Metoprolol Tartrate (Lopressor) 25 mg PO BID [facility] Last Admin: 08/23/16 10:50 Dose: 25 mg Pantoprazole Sodium (Protonix Ec Tab) 40 mg PO DAILY [facility] Last Admin: 08/23/16 10:54 Dose: 40 mg Risperidone (Risperdal Tab) 1 mg PO BID [facility] Last Admin: 08/23/16 10:52 Dose: 1 mg Rosuvastatin Calcium (Crestor) 10 mg PO HS [facility] Last Admin: 08/22/16 21:30 Dose: 10 mg Sitagliptin Phosphate (Januvia) 100 mg PO BRK [facility] Last Admin: 08/23/16 08:29 Dose: 100 mg - Labs Labs: 08/23/16 07:35 08/23/16 07:35
--- NOTE | 2016-08-23 14:32 | PN ---
DATE: 08/23/2016 SUBJECTIVE: The patient will be going home today with his mom. However, the patient is on insulin for his diabetes and does not know how to give any insulin. Mother has been instructed and needs a lot of help as the patient's mom is also having difficulty using the insulin pen as well as how to administer insulin properly. The patient's mom has been instructed by the nurse as the patient cannot do it by himself. He has been compliant with his meds. Blood sugar is still in the 200 range and the patient is still having difficulty not cheating on his diet. VITAL SIGNS: Temperature 97.9, pulse rate is 81, blood pressure is 145/97, respirations 18, oxygen sats 97%. REVIEW OF SYSTEMS: GENERAL: Alert, oriented x 3, ambulatory; seen in his room, eager for discharge. SKIN: No diaphoresis. HEENT: No headache, no dizziness. NECK: Supple. RESPIRATORY: No dyspnea. CARDIOVASCULAR: No chest pain. GASTROINTESTINAL: The patient has a very voracious appetite. No nausea, no vomiting. EXTREMITIES: No tremors. The patient is ambulatory. MUSCULOSKELETAL: Weakness, improving. NEUROLOGIC: Alert and oriented x 3. GENITOURINARY: No urinary problems. MENTAL STATUS EXAMINATION: A bright looking male who looks stated age, oriented x 3. Speech spontaneous. Affect is reactive. Mood is calm. Thought process coherent. Thought content: No paranoia, no hallucination, no suicidal ideation. The patient has been compliant with his psych medication and psych- aguirre is stable. Attention and memory seem to be fair. Insight and judgment limited. Impulse control is fair at this time. IMPRESSION: History of chronic paranoid schizophrenia, stable as well as uncontrolled diabetes. PLAN AND RECOMMENDATIONS: The patient seen, meds reviewed. Continue present psych meds. The patient to follow up with his primary care doctor may benefit from seeing an panel instrument repairer. The patient advised to follow his diet. The patient's mom needs to administer the patient's insulin as the patient cannot do it by himself as the patient seems to be mentally challenged. Jarad Sharma MD cc: [id number] TT: 08/23/2016 14:31:27 Confirmation # [id number] Dictation # [id number] mal[facility]
[2016-08-23 17:09] VITALS: BP 129/78; PULSE 88; RESP 20; TEMP 98.2; O2SAT 95
--- NOTE | 2016-08-24 01:12 | PN ---
DATE: 08/23/2016 Today, patient is alert and awake. Denied any . No weakness. Blood pressure is 129/78, pulse 88, respiration is 20, temperature 98.2. NECK: Supple. No JVD. LUNGS: Clear. HEART: Regular rate and rhythm. ABDOMEN: Soft. Obese, nontender, no palpable mass. EXTREMITIES: There is no edema. The patient had some blood tests done. The WBC is 7.1, hemoglobin 15, hematocrit 44.2, and platelet is 162. Chemistry: Sodium 137, potassium .7, chloride 98, bicarbonate 24, BUN 16, creatinine 0 .9 and glucose is 245. The glucose 244, 241, 242, 201. PLAN: We are going to consider discharging the patient today and diabetic education is done with the mother and the patient. Eduardo Lopez MD cc: [id number] TT: 08/24/2016 01:12:22 Confirmation # [id number] Dictation # [id number] tn
--- NOTE | 2016-08-24 11:02 | DS ---
The patient is a 51-year-old male with history of diabetes and hypertension and a history of schizoph roro. The patient was seen in my office complaining of polyuria and polydipsia. The patient felt s omewhat weak. Also found that the patient had a blood sugar of 400+ at home, and in the office the g lucometer had shown high, so the patient was advised to go to the Emergency Room for evaluation and t he patient was admitted. ALLERGIES: The patient has no known allergy. In the hospital, the patient had a consult with Dr Medina Alexander (supervisor electrolytic tinning), and the patient was put on medication including insulin/ Lantus and also on metformin, plus high blood pressure medicatio n and also Risperdal. The patient also had a consult with Dr. Sharma. So now the blood sugar is somewhat controlled but it is still in the range of 200-240. The patient w as instructed how to do self-injection of insulin and also to do an Accu-Chek. So, the patient at th is point would be able to be discharged home with the mother who was also instructed how to use and t o do the Accu-Chek. So, the patient is going to see me within 1 week. Eduardo Lopez MD cc: [id number] TT: 08/24/2016 11:01:32 mali
== END 2016-08-23 16:15 | disposition home or self-care (01) | DRG 638 ==
LOC: C.ER 15:22 → C.9E 19:51 → C.3T 20:55 → OBSVTOIN 08-20 16:45
PROVIDERS: ADMIT Specialist; ATTEND Specialist
DX: E11.65 Type 2 diabetes mellitus with hyperglycemia (principal); I10 Essential (primary) hypertension; E78.1 Pure hyperglyceridemia; F20.0 Paranoid schizophrenia; J45.909 Unspecified asthma, uncomplicated; E66.9 Obesity, unspecified; Z68.39 Body mass index [BMI] 39.0-39.9, adult; Z23 Encounter for immunization; Z90.49 Acquired absence of other specified parts of digestive tract; Z79.84 Long term (current) use of oral hypoglycemic drugs

== ENCOUNTER 2017-06-27 08:57 | Inpatient (IN) | payer MEDICARE, MEDICAID ==
[2017-06-27 08:58] VITALS: BMI 23.7
[2017-06-27] MEDS ORDERED: Aspirin 325 mg EC Tablets PO STA (09:38)
--- NOTE | 2017-06-27 09:50 | C.PDOC ---
History Of Present Illness 52 y/o male with PMHx of DM, HTN and Schizophrenia presents to ED for evaluation of chest pain radiating to left arm since 7 am today. Pt notes he woke up, got out of his bed, and started feeling the pain. The pain has since resolved. Denies sob, headache, fever, diaphoresis, numbness, weakness or any other complaints at this time. PMD: Dr. Lopez Time Seen by Provider: 06/27/17 09:21 Chief Complaint (Nursing): Chest Pain History Per: Patient, Family (mother) History/Exam Limitations: no limitations Onset/Duration Of Symptoms: Hrs Current Symptoms Are (Timing): Better Past Medical History Reviewed: Historical Data, Nursing Documentation, Vital Signs Vital Signs: Last Vital Signs Temp 98.3 F 06/27/17 09:06 Pulse 84 06/27/17 14:30 Resp 18 06/27/17 14:30 BP 107/69 06/27/17 14:30 Pulse Ox 97 06/27/17 14:30 - Medical History PMH: Asthma, Diabetes, HTN, Schizophrenia Surgical History: Cholecystectomy Family History: States: No Known Family Hx - Social History Hx Tobacco Use: Yes Hx Alcohol Use: No Hx Substance Use: No - Immunization History Hx Tetanus Toxoid Vaccination: No Hx Influenza Vaccination: No Hx Pneumococcal Vaccination: Yes Review Of Systems Constitutional: Negative for: Fever, Chills Cardiovascular: Positive for: Chest Pain Gastrointestinal: Negative for: Nausea, Vomiting Musculoskeletal: Positive for: Arm Pain Skin: Negative for: Rash Neurological: Negative for: Weakness, Numbness Physical Exam - Physical Exam Appears: Non-toxic, No Acute Distress, Other (obese) Skin: Warm, Dry, No Rash Head: Atraumatic, Normacephalic Eye(s): bilateral: Normal Inspection, EOMI Nose: Normal Oral Mucosa: Moist Neck: Normal ROM, Supple Chest: Symmetrical Cardiovascular: Rhythm Regular Respiratory: Normal Breath Sounds, No Accessory Muscle Use, No Rales, No Rhonchi , No Wheezing Gastrointestinal/Abdominal: Soft, No Tenderness, No Guarding, No Rebound Back: No CVA Tenderness Extremity: Normal ROM, Capillary Refill (<2 seconds) Neurological/Psych: Oriented x3 ED Course And Treatment - Laboratory Results Result Diagrams: 06/27/17 09:52 06/27/17 09:52 ECG: Interpreted By (Trena), Viewed By Me ECG Rhythm: Sinus Rhythm Rate From EC (bpm) O2 Sat by Pulse Oximetry: 99 (RA) Pulse Ox Interpretation: Normal - Other Rad CXR X-Ray: Viewed By Me, Read By Radiologist Interpretation: PROCEDURE: CHEST RADIOGRAPH, 1 VIEW. HISTORY: chest pain. COMPARISON: None available. FINDINGS: LUNGS: Clear. PLEURA: No pneumothorax or pleural fluid seen. CARDIOVASCULAR: Normal. OSSEOUS STRUCTURES: No significant abnormalities. VISUALIZED UPPER ABDOMEN: Normal. OTHER FINDINGS: None. IMPRESSION: No active disease. Progress Note: Blood work ordered, CXR ordered and Aspirin administered. Case discussed wt Dr Lopez, agreed upon admission. Disposition - Disposition Disposition: HOSPITALIZED Disposition Time: 13:30 Condition: STABLE - Clinical Impression Clinical Impression: Chest pain, Hypokalemia - PA / CANE FLUME FEEDING MACHINE OPERATOR / Resident Statement MD/DO has reviewed & agrees with the documentation as recorded. - Scribe Statement The provider has reviewed the documentation as recorded by the Johnibny Rodriguez All medical record entries made by the Johnibny were at my direction and personally dictated by me. I have reviewed the chart and agree that the record accurately reflects my personal performance of the history, physical exam, medical decision making, and the department course for this patient. I have also personally directed, reviewed, and agree with the discharge instructions and disposition.
[2017-06-27 09:55] LABS: BASO # 0.1 K/uL (0.0-0.2); BASO % 1.2 % (0.0-2.0); EOS # 0.1 K/uL (0.0-0.7); EOS % 1.1 % (0.0-4.0); HEMOGLOBIN 14.6 g/dL (12.0-18.0); LYMPH # 2.4 K/uL (1.0-4.3); LYMPH % 22.8 % (20.0-40.0); MEAN CELL VOLUME 89.6 fL (80.0-94.0); MEAN CORPUSCULAR HEMOGLOBIN 29.6 pg (27.0-31.0); MEAN CORPUSCULAR HGB CONC 33.1 g/dL (33.0-37.0); MEAN PLATELET VOLUME 10.8 fL (7.2-11.7); MONO # 0.9 K/uL (0.0-0.8); NEUT # 6.9 K/uL (1.8-7.0); NEUT % 65.9 % (50.0-75.0); RBC 4.93 Mil/uL (4.40-5.90); RED CELL DISTRIBUTION WIDTH 13.6 % (11.5-14.5); WHITE BLOOD COUNT 10.4 K/uL (4.8-10.8)
[2017-06-27 10:03] LABS: PROTHROMBIN TIME 11.8 SECONDS (9.7-12.2)
[2017-06-27 10:07] LABS: ALB/GLOB RATIO 1.2 (1.0-2.1); ALT/SGPT 21 U/L (21-72); AST/SGOT 17 U/L (17-59); BLOOD UREA NITROGEN 20 mg/dL (9-20); CALCIUM 9.6 mg/dl (8.6-10.4); GFR AFRICAN-AMERICAN > 60; GFR NON-AFRICAN AMERICAN 53; LIPASE 194 U/L (23-300)
--- NOTE | 2017-06-27 10:30 | RAD ---
PROCEDURE: CHEST RADIOGRAPH, 1 VIEW HISTORY: chest pain COMPARISON: None available. FINDINGS: LUNGS: Clear. PLEURA: No pneumothorax or pleural fluid seen. CARDIOVASCULAR: Normal. OSSEOUS STRUCTURES: No significant abnormalities. VISUALIZED UPPER ABDOMEN: Normal. OTHER FINDINGS: None. IMPRESSION: No active disease.
[2017-06-27] MEDS ORDERED: Potassium Chloride 20 mEq ER Tab PO STA (10:35)
[2017-06-27] MEDS ORDERED: Potassium Chloride 20 mEq/15 ml LIQ UD ONE (10:49)
[2017-06-27 11:15] LABS: SQUAMOUS EPITHIAL 1 /hpf (0-5); URINE BILIRUBIN NEGATIVE (NEGATIVE); URINE BLOOD NEGATIVE (NEGATIVE); URINE CLARITY Clear (Clear); URINE COLOR Yellow (YELLOW); URINE GLUCOSE (UA) 3+ mg/dL (Normal); URINE LEUKOCYTE ESTERASE NEG Leu/uL (Negative); URINE NITRATE NEGATIVE (NEGATIVE); URINE PROTEIN NEGATIVE (NEGATIVE); URINE UROBILINOGEN NORMAL mg/dL (0.2-1.0)
--- NOTE | 2017-06-27 15:52 | CON ---
DATE: CARDIOLOGY CONSULTATION REASON FOR CONSULTATION: Chest pain. HISTORY OF PRESENT ILLNESS: The patient is a 52-year-old male who has a history of schizophrenia, hypertension and diabetes mellitus, presented with chest pain. The patient cannot characterize any details of his chest discomfort and he denies any history of heart attack in the past or coronary intervention. The patient at this time denies any chest pain. SOCIAL HISTORY: The patient is a smoker, occasional drinker. He lives with his mother. MEDICATIONS: The patient did receive aspirin and K-Dur in the emergency room. Home medications are not listed. REVIEW OF SYSTEMS: The patient denies any visual hallucinations. He denies any suicidal ideations. Denies any nausea or vomiting. The patient was not clear about any history of shortness of breath or cough. PHYSICAL EXAMINATION: GENERAL: The patient is a middle-age male, who does not appear to be in any distress. VITAL SIGNS: Blood pressure 107/69, heart rate 84, temperature 98.3, respirations 22. HEENT: Normocephalic. CHEST: Clear. HEART: S1 and S2 regular. ABDOMEN: Soft. EXTREMITIES: No edema and no calf tenderness. LABORATORY DATA: SMA-7: Sodium 137, potassium 3, chloride 95, CO2 of 33, glucose of 115, BUN 20, creatinine 1.4. One set of troponin is negative. PT, PTT, INR are within normal limit. Hemoglobin and hematocrit, white count and platelet count are within normal limits. EKG revealed sinus rhythm, incomplete right bundle-branch block, nonspecific ST-T wave changes. ASSESSMENT: 1. Chest pain. Rule out myocardial infarction. 2. Rule out pulmonary infarction. 3. History of schizophrenia. RECOMMENDATIONS: Start aspirin 81 mg once a day, Crestor 20 mg once a day, Lopressor 12.5 mg twice a day. Obtain an echocardiogram. Order serial EKGs and serial cardiac enzymes. Obtain serum D-dimer as well as urine for drug screen. Prasanth Sargent MD
[2017-06-27 16:43] LABS: BARBITURATES, UR NEGATIVE (NEGATIVE); BENZODIAZEPINES, UR NEGATIVE (NEGATIVE); OPIATES, UR NEGATIVE (NEGATIVE)
[2017-06-27 17:00] LABS: PHENCYCLIDINE, UR NEGATIVE (NEGATIVE)
[2017-06-27 17:12] LABS: CK-MB 14.8 ng/mL (0.0-3.38); TROPONIN I 10.2 ng/mL (0.00-0.120)
[2017-06-27] MEDS ORDERED: Divalproex 250 mg DR Tab PO ONE (17:44)
[2017-06-27] MEDS: Divalproex 500 mg DR Tab PO SCH (17:47)
[2017-06-27] MEDS ORDERED: Heparin25000 units/250ml 1/2NS 25,000 UNITS/250 ML BAG IV PRN ×3 (18:03→21:14)
--- NOTE | 2017-06-27 18:39 | PN ---
DATE: FOLLOWUP SUBJECTIVE: I was just notified by Dr. Lopez that the patient's troponin was 10. I did contact the emergency room nursing team as well as the ER LICENSED MASSAGE PRACTITIONER in charge. I did discontinue subcutaneous heparin and I initiated intravenous heparin with a bolus of 5000 units followed by continuous infusion in a dose protocol for acute coronary syndrome. I asked for state EKG and I strongly recommended that the patient get admitted to ICU. ICU kineseologist will be notified and will evaluate the patient. In the meantime, the patient is already on aspirin 81 mg once a day, Crestor will be increased to 40 mg once a day and currently on Lopressor 12.5 mg twice a day. Echocardiographic study was ordered and will be performed as a bedside study. Prasanth Sargent MD
--- NOTE | 2017-06-27 19:16 | NM ---
EXAM: NM Lung Perfusion and Ventilation Scan CLINICAL HISTORY: 52 years old, male; Pain; Chest pain; Radiating; Patient HX: Ed clinical information sent as well for clinical correlation. Chest x-ray done 06/27/2017 sent for correlation. Prior v/q scan from 12/23/2012 sent for comparison. ; Additional info: R/O pe TECHNIQUE: Nuclear Medicine ventilation and perfusion images of the lungs were obtained in multiple projections following inhalation of 12.8 mCi of Xenon-133 gas and injection of 4.2 mCi of Tc99m MAA. COMPARISON: NM - LUNG SCAN (VQ SCAN) 2012-12-23 19:43 FINDINGS: Ventilation: No moderate or large ventilation defects. Perfusion: No moderate or large perfusion defects. IMPRESSION: Low probability for pulmonary embolism.
--- NOTE | 2017-06-27 20:11 | CP.PCM.CON ---
History of Present Illness - History of Present Illness History of Present Illness: Attending: Dr Eduardo Lopez Reason for Consult: Critical care management Chief complaint: Chest Pain The patient was seen and examined in the ED, no family present HPI: 52 years old female with hx of HTN, DM, HLD and Paroxysmal of A Fib comes with 2 hours of sharp, left side chest pain radiating down the left upper extremity and associated with nausea. The pain began after she awoke and got out of bed and resolved on arriving to the ED. She now complains of headache and mild left chest pain 2-3. No vomits, diaphoresis, fever, SOB, Palpitation. In ED first Troponin level was 0.050 and the second was 10.2000ng/ ml PMH: Asthma; DM II; HTN; HLD; Paroxysmal A Fib; Schizophrenia PSH: Cholecystectomy SH: No illegal drug use; No Alcohol: Light tobacco use; Live with family FH: States: No Known Family Hx Allergies: NKDA Medication: Revieweed Review of Systems - Constitutional Constitutional: Headache. absent: Anorexia, Chills, Fatigue, Fever - EENT Eyes: Requires Corrective Lenses. absent: Diplopia, Floaters, Sees Flashes Ears: absent: Decreased Hearing, Ear Discharge, Ear Pain, Tinnitus Nose/Mouth/Throat: absent: Epistaxis, Nasal Congestion, Nasal Discharge, Sore Throat - Cardiovascular Cardiovascular: Chest Pain. absent: Dyspnea, Edema, Palpitations - Respiratory Respiratory: absent: Cough, Dyspnea, Wheezing, Chest Congestion - Gastrointestinal Gastrointestinal: Nausea. absent: Abdominal Pain, Constipation, Diarrhea, Vomiting - Genitourinary Genitourinary: absent: Dysuria, Flank Pain, Hematuria, Urinary Frequency - Musculoskeletal Musculoskeletal: absent: Arthralgias, Back Pain, Joint Swelling, Neck Pain - Integumentary Integumentary: absent: Pruritus, Rash, Skin Ulcer, Sores, Striae, Swelling - Neurological Neurological: Headaches. absent: Confusion, Dizziness, Focal Weakness, Paresthesias, Weakness - Psychiatric Psychiatric: absent: Anxiety, Depression, Panic Attacks - Endocrine Endocrine: absent: Palpitations, Polydipsia, Polyphagia, Polyuria - Hematologic/Lymphatic Hematologic: absent: Easy Bleeding, Easy Bruising Past Patient History - Past Medical History & Family History Past Medical History?: Yes - Past Social History Smoking Status: Current Some Days Smoker Chewing Tobacco Use: No Cigar Use: No Alcohol: None Drugs: Denies Home Situation {Lives}: With Family - CARDIAC Hx Hypercholesterolemia: Yes Hx Hypertension: Yes - PULMONARY Hx Asthma: Yes - HEENT Hx HEENT Problems: No - RENAL Hx Chronic Kidney Disease: No - ENDOCRINE/METABOLIC Hx Diabetes Mellitus Type 2: Yes - HEMATOLOGICAL/ONCOLOGICAL Hx Blood Disorders: No - INTEGUMENTARY Hx Dermatological Problems: No - MUSCULOSKELETAL/RHEUMATOLOGICAL Hx Musculoskeletal Disorders: No Hx Falls: No - GASTROINTESTINAL Hx Gastrointestinal Disorders: No - GENITOURINARY/GYNECOLOGICAL Hx Genitourinary Disorders: No - PSYCHIATRIC Hx Schizophrenia: Yes Hx Substance Use: No - SURGICAL HISTORY Hx Cholecystectomy: Yes - ANESTHESIA Hx Anesthesia: Yes Hx Anesthesia Reactions: Yes Meds Allergies/Adverse Reactions: Allergies Allergy/AdvReac Type Severity Reaction Status Date / Time No Known Allergies Allergy Unverified 12/12/12 10:04 - Medications Medications: Current Medications Aspirin (Aspirin Chewable) 81 mg PO DAILY [facility] Chlorthalidone (Hygroton) 25 mg PO DAILY [facility] Clopidogrel Bisulfate (Plavix) 75 mg PO DAILY [facility] Divalproex Sodium (Depakote Dr) 500 mg PO BID [facility] Last Admin: 06/27/17 17:47 Dose: 500 mg Glimepiride (Amaryl) 2 mg PO DAILY [facility] Home Med (Patient's Own Medication) 1 tab PO DAILY [facility] Heparin Sodium/Sodium Chloride (Heparin 05608 Units/250ml 1/2 Normal Saline) 25 ,000 units in 250 mls @ 12.519 mls/hr IV .[id number] PRN; Protocol; 12 UNITS/KG/HR PRN Reason: ADJUST RATE PER PROTOCOL Last Admin: 06/27/17 19:11 Dose: 12 units/kg/hr, 12.519 mls/hr Metoprolol Tartrate (Lopressor) 12.5 mg PO BID [facility] Last Admin: 06/27/17 19:16 Dose: 12.5 mg Risperidone (Risperdal Tab) 1 mg PO BID [facility] Last Admin: 06/27/17 17:48 Dose: 1 mg Rosuvastatin Calcium (Crestor) 40 mg PO [facility] Sitagliptin Phosphate (Januvia) 50 mg PO DAILY [facility] Physical Exam - Constitutional Appears: No Acute Distress - Head Exam Head Exam: ATRAUMATIC, NORMAL INSPECTION, NORMOCEPHALIC - Eye Exam Eye Exam: EOMI, Normal appearance Pupil Exam: NORMAL ACCOMODATION, PERRL - ENT Exam ENT Exam: Mucous Membranes Moist, Normal Exam, Normal External Ear Exam - Neck Exam Neck exam: Positive for: Full Rom, Normal Inspection. Negative for: Lymphadenopathy, Tenderness - Respiratory Exam Respiratory Exam: absent: Rales, Rhonchi, Wheezes Additional comments: Decreased breath sounds globally. - Cardiovascular Exam Cardiovascular Exam: REGULAR RHYTHM, RRR, +S1, +S2. absent: Gallop, JVD - GI/Abdominal Exam GI & Abdominal Exam: Normal Bowel Sounds, Soft. absent: Mass, Organomegaly, Tenderness Additional comments: Obese, soft, tympanic on percussion - Rectal Exam Rectal Exam: Deferred - Extremities Exam Extremities exam: Positive for: full ROM, normal inspection. Negative for: calf tenderness, joint swelling, pedal edema - Back Exam Back exam: NORMAL INSPECTION. absent: CVA tenderness (L), CVA tenderness (R) - Neurological Exam Neurological exam: Alert, CN II-XII Intact, Oriented x3, Reflexes Normal - Psychiatric Exam Psychiatric exam: Normal Affect, Normal Mood - Skin Skin Exam: Dry, Intact, Normal Color, Warm Results - Vital Signs Recent Vital Signs: Last Vital Signs Temp 98.2 F 06/27/17 19:26 Pulse 76 06/27/17 19:26 Resp 20 06/27/17 19:26 BP 109/72 06/27/17 19:26 Pulse Ox 95 06/27/17 19:26 - Labs Result Diagrams: 06/27/17 09:52 06/27/17 09:52 Labs: Laboratory Results - last 24 hr 06/27/17 06/27/17 06/27/17 09:52 09:52 09:52 WBC 10.4 RBC 4.93 Hgb 14.6 Hct 44.2 MCV 89.6 D MCH 29.6 MCHC 33.1 RDW 13.6 Plt Count 232 MPV 10.8 Neut % (Auto) 65.9 Lymph % (Auto) 22.8 [place] % (Auto) 9.0 Eos % (Auto) 1.1 Baso % (Auto) 1.2 Neut # 6.9 Lymph # 2.4 [place] # 0.9 H Eos # 0.1 Baso # 0.1 PT 11.8 INR 1.0 APTT 32 D-Dimer, Quantitative Sodium 137 Potassium 3.0 L Chloride 95 L Carbon Dioxide 33 H Anion Gap 12 BUN 20 Creatinine 1.4 Est GFR ( Amer) > 60 Est GFR (Non-Af Amer) 53 Random Glucose 115 H Calcium 9.6 Total Bilirubin 0.3 AST 17 ALT 21 Alkaline Phosphatase 50 Total Creatine Kinase CK-MB (Mass) Troponin I 0.0500 Total Protein 7.4 Albumin 4.0 Globulin 3.4 Albumin/Globulin Ratio 1.2 Lipase 194 Urine Color Urine Clarity Urine pH Ur Specific [place] Urine Protein Urine Glucose (UA) Urine Ketones Urine Blood Urine Nitrate Urine Bilirubin Urine Urobilinogen Ur Leukocyte Esterase Urine WBC (Auto) Urine RBC (Auto) Ur Squamous Epith Cells Urine Opiates Screen Urine Methadone Screen Ur Barbiturates Screen Ur Phencyclidine Scrn Ur Amphetamines Screen U Benzodiazepines Scrn U Oth Cocaine Metabols U Cannabinoids Screen 06/27/17 06/27/17 06/27/17 10:54 15:58 16:12 WBC RBC Hgb Hct MCV MCH MCHC RDW Plt Count MPV Neut % (Auto) Lymph % (Auto) [place] % (Auto) Eos % (Auto) Baso % (Auto) Neut # Lymph # [place] # Eos # Baso # PT INR APTT D-Dimer, Quantitative Sodium Potassium Chloride Carbon Dioxide Anion Gap BUN Creatinine Est GFR ( Amer) Est GFR (Non-Af Amer) Random Glucose Calcium Total Bilirubin AST ALT Alkaline Phosphatase Total Creatine Kinase 291 H CK-MB (Mass) 14.8 H Troponin I 10.2000 H* Total Protein Albumin Globulin Albumin/Globulin Ratio Lipase Urine Color Yellow Urine Clarity Clear Urine pH 7.0 Ur Specific [place] 1.027 Urine Protein Negative Urine Glucose (UA) 3+ H Urine Ketones Trace Urine Blood Negative Urine Nitrate Negative Urine Bilirubin Negative Urine Urobilinogen Normal Ur Leukocyte Esterase Neg Urine WBC (Auto) 1 Urine RBC (Auto) 1 Ur Squamous Epith Cells 1 Urine Opiates Screen Negative Urine Methadone Screen Negative Ur Barbiturates Screen Negative Ur Phencyclidine Scrn Negative Ur Amphetamines Screen Negative U Benzodiazepines Scrn Negative U Oth Cocaine Metabols Negative U Cannabinoids Screen Negative 06/27/17 16:12 WBC RBC Hgb Hct MCV MCH MCHC RDW Plt Count MPV Neut % (Auto) Lymph % (Auto) [place] % (Auto) Eos % (Auto) Baso % (Auto) Neut # Lymph # [place] # Eos # Baso # PT INR APTT D-Dimer, Quantitative 246 H Sodium Potassium Chloride Carbon Dioxide Anion Gap BUN Creatinine Est GFR ( Amer) Est GFR (Non-Af Amer) Random Glucose Calcium Total Bilirubin AST ALT Alkaline Phosphatase Total Creatine Kinase CK-MB (Mass) Troponin I Total Protein Albumin Globulin Albumin/Globulin Ratio Lipase Urine Color Urine Clarity Urine pH Ur Specific [place] Urine Protein Urine Glucose (UA) Urine Ketones Urine Blood Urine Nitrate Urine Bilirubin Urine Urobilinogen Ur Leukocyte Esterase Urine WBC (Auto) Urine RBC (Auto) Ur Squamous Epith Cells Urine Opiates Screen Urine Methadone Screen Ur Barbiturates Screen Ur Phencyclidine Scrn Ur Amphetamines Screen U Benzodiazepines Scrn U Oth Cocaine Metabols U Cannabinoids Screen - EKG Data EKG comments: NSR 79/min No sign of ischemia - Imaging and Cardiology Chest x-ray Status: Image reviewed by me, Report reviewed by me Additional comment: Bibasal haziness, probably due to breast mass VQ Scan Additional comment: Low probability for Pulmonary Embolism Assessment & Plan - Assessment and Plan (Free Text) Assessment: #. NSTEMI #. Hypokalemia #. DM II #. HTN #. HLD #. Obesity #. Schizophrenia #. hx of Asthma Plan: 52 years old female with hx of HTN, DM, HLD and Paroxysmal of A Fib comes with 2 hours of sharp, left side chest pain radiating down the left upper extremity and associated with nausea. In ED first Troponin level was 0.050 and the second was 10.2000ng/ml #. NSTEMI - consult Cardiology Dr Sargent - Serial EKG - Serial Troponin - ECHO - Heparin IV Drip - ASA - Plavix - Crestor - Metoprolol #. Hypokalemia. Repleated - Follow electrolytes #. DM II - Regular insulin sliding scale according to Accucheck #. HTN - Metoprolol - Follow vital signs #. HLD -0 Crestor - Lipid panel #. Obesity - Consult Dietitian - #. Schizophrenia - Consult Psychiatry #. hx of Asthma - Stable #. Stress ulcer prophylaxis with Pantoprazole #. DVT Prophylaxis - Patient on IV heparin #. Code status: Full - Date & Time Date: 06/27/17 Time: 20:11
[2017-06-27] MEDS: (Novolin R) Insulin Human Regular 100 units/ml vial SC SCH (22:10)
[2017-06-27] MEDS: Heparin25000 units/250ml 1/2NS 25,000 UNITS/250 ML BAG IV PRN (22:11)
[2017-06-27 22:55] LABS: CK-MB 14.5 ng/mL (0.0-3.38); TROPONIN I 12.6 ng/mL (0.00-0.120)
[2017-06-28 06:37] LABS: BASO # 0.1 K/uL (0.0-0.2); BASO % 0.8 % (0.0-2.0); EOS # 0.2 K/uL (0.0-0.7); EOS % 1.7 % (0.0-4.0); HEMOGLOBIN 13.5 g/dL (12.0-18.0); LYMPH # 3.4 K/uL (1.0-4.3); LYMPH % 34.8 % (20.0-40.0); MEAN CELL VOLUME 88.4 fL (80.0-94.0); MEAN CORPUSCULAR HEMOGLOBIN 30.3 pg (27.0-31.0); MEAN CORPUSCULAR HGB CONC 34.3 g/dL (33.0-37.0); MEAN PLATELET VOLUME 10.9 fL (7.2-11.7); MONO # 0.9 K/uL (0.0-0.8); MONO % 9.6 % (0.0-10.0); NEUT # 5.2 K/uL (1.8-7.0); NEUT % 53.1 % (50.0-75.0); NRBC % 0.1 % (0.0-2.0); RBC 4.45 Mil/uL (4.40-5.90); RED CELL DISTRIBUTION WIDTH 13.9 % (11.5-14.5); WHITE BLOOD COUNT 9.7 K/uL (4.8-10.8)
--- NOTE | 2017-06-28 06:43 | HP ---
HISTORY OF PRESENT ILLNESS: This patient is a 52-year-old male with a past medical history significant for diabetes and hypertension. Also patient has a history of major depression and schizophrenia. The patient came to the emergency room complaining of chest pain. Patient stated that early this morning he was sweating and developed some chest pain and patient got scared, and patient called the mother, called EMS, and they took patient to the emergency room. In the emergency room, patient has received some medications including nitro paste, nitroglycerine given in the field. At the time of evaluation early this morning, patient claimed having no chest pain. PAST MEDICAL HISTORY: As I mentioned, history of hypertension, diabetes, schizophrenia, and major depression. PAST SURGICAL HISTORY: Patient had a cholecystectomy. SOCIAL HISTORY: The patient lives with mother. The patient's twin a few years ago of unknown cause. FAMILY HISTORY: Mother is alive, has high blood pressure. The father is not known. REVIEW OF SYSTEMS: RESPIRATORY: Patient is having some shortness of breath on exertion. CARDIOVASCULAR: Patient was complaining of chest pain, but has denied any chest pain at the time of evaluation. GASTROINTESTINAL: No nausea or vomiting, but complains of epigastric pain at times. GENITOURINARY: No dysuria. NEUROLOGIC: Patient denies any weakness. PSYCHIATRIC: Patient is alert, awake and oriented. PHYSICAL EXAMINATION: GENERAL: Patient is obese. The patient mentions that the patient has the habit to sleep on the chair most of the time. VITAL SIGNS: The blood pressure on admission is 113/71, pulse is 80, respiration is 18, temperature is 98.4. NECK: Supple. LUNGS: Clear, even though there is some poor inspiratory effort. HEART: Regular, rate and rhythm. ABDOMEN: Soft, obese, mild epigastric tenderness. EXTREMITIES: There are chronic changes of the skin of the lower extremities, and there is some edema noted. LABORATORY DATA: The patient had some tests done. WBC is 10.4, hemoglobin 14.6, hematocrit is 44.2, and platelets is 232. Chemistry has shown that the sodium is 137, potassium is 3, chloride 95, bicarb is 33, BUN 20, creatinine 1.4, glucose is 115. The CK is 291 and CK-MB is 14.8. The first troponin was 0.05; but after evaluation this evening, I was told that the troponin was 10.2. Albumin is 4.4. Coagulation: The D-dimer is very elevated at 246, PT 11.8, INR is 1, and PTT is 32. Other tests done this afternoon after the elevation of the troponin; the V/Q scan was done, has shown a low probability for pulmonary embolism. IMPRESSION AND PLAN: The patient is admitted with diagnoses of unstable angina without myocardial infarction, elevated troponin, hypertension, diabetes, obesity, and hyperlipidemia. Patient was seen by Dr. Sargent, product marketing specialist, and recommendation was made to admit the patient to CCU. In the meantime, patient will receive other medications including heparin and also will receive Crestor, plus blood pressure mediation that patient was to have before, and also Depakote and Risperdal. Eduardo Lopez MD
[2017-06-28 06:45] LABS: ALBUMIN 3.5 g/dL (3.5-5.0); ALT/SGPT 25 U/L (21-72); AST/SGOT 74 U/L (17-59); BLOOD UREA NITROGEN 24 mg/dL (9-20); CALCIUM 9.2 mg/dl (8.6-10.4); GFR AFRICAN-AMERICAN > 60; GFR NON-AFRICAN AMERICAN > 60; HDL CHOLESTEROL 32 mg/dL (30-70); MAGNESIUM 1.9 mg/dL (1.6-2.3)
[2017-06-28 06:53] LABS: CK-MB 9.84 ng/mL (0.0-3.38); LDL CHOLESTEROL 104 mg/dL (0-129)
[2017-06-28] MEDS: (Novolin R) Insulin Human Regular 100 units/ml vial SC SCH ×4 (07:38→21:30)
[2017-06-28] MEDS: Divalproex 500 mg DR Tab PO SCH ×3 (09:37→17:37)
--- NOTE | 2017-06-28 11:53 | CP.CCUPN ---
<Jeb Cuellar - Last Filed: 06/28/17 14:40> CCU Subjective - Physician Review Subjective (Free Text): 06/28/17 11:52 patient seen and examined at bedside. Denies chest pain at this time no SOB tolerating diet CCU Objective - Vital Signs / Intake & Output Vital Signs (Last 4 hours): Vital Signs Temp Pulse Resp BP Pulse Ox 06/28/17 11:06 84 22 114/70 96 06/28/17 11:05 90 22 06/28/17 10:00 87 15 98 06/28/17 09:59 87 21 115/77 97 06/28/17 09:03 86 22 114/72 100 06/28/17 09:00 85 22 06/28/17 08:00 98.9 F 82 24 96 06/28/17 07:59 81 16 119/75 96 Intake and Output (Last 8hrs): Intake & Output 06/27/17 06/28/17 06/28/17 22:59 06:59 14:59 Intake Total 127.0 308.0 427.5 Output Total 700 300 Balance 127.0 -392.0 127.5 Weight 247 lb 12.793 oz 247 lb 12.793 oz Intake: Intake, IV Amount 27.0 108.0 67.5 Left Antecubital 27.0 108.0 67.5 Oral 100 200 360 Output: Urine 700 300 Urine, Voided 700 300 Other: Voiding Method Urinal # Voids Urine, Voided 1 # Bowel Movements 0 - Medications Active Medications: Active Medications Generic Name Dose Route Start Last Admin Trade Name Freq PRN Reason Stop Dose Admin Acetaminophen 650 mg 06/27/17 20:50 Tylenol 325mg Tab PO Q6 PRN Headache Aspirin 81 mg 06/28/17 10:00 06/28/17 09:43 Aspirin Chewable PO 81 mg DAILY MICHELLE Administration Chlorthalidone 25 mg 06/28/17 10:00 06/28/17 09:38 Hygroton PO 25 mg DAILY MICHELLE Administration Clopidogrel Bisulfate 75 mg 06/28/17 10:00 06/28/17 09:37 Plavix PO 75 mg DAILY MICHELLE Administration Divalproex Sodium 500 mg 06/28/17 14:[address] PO TID MICHELLE Famotidine 20 mg 06/27/17 21:30 06/28/17 09:37 Pepcid PO 20 mg DAILY MICHELLE Administration Glimepiride 2 mg 06/28/17 10:00 06/28/17 09:37 Amaryl PO 2 mg DAILY MICHELLE Administration Home Med 1 tab 06/28/17 10:00 Patient's Own Medication PO DAILY MICHELLE Home Med 20 mg 06/29/17 10:00 Viibryd PO DAILY MICHELLE Heparin Sodium/Sodium Chloride 25,000 units in 250 mls @ 13.488 mls/hr 21:42 06/27/17 22:11 Heparin 20851 Units/250ml 1/2 Normal Saline IV 12 units/kg/hr .[id number] PRN 13.488 mls/hr ADJUST RATE PER PROTOCOL Administration Protocol 12 UNITS/KG/HR Insulin Human Regular 0 unit 06/27/17 22:00 06/28/17 11:34 Novolin R SC Not Given ACHS [facility] Protocol Metoprolol Tartrate 12.5 mg 06/27/17 18:00 06/28/17 09:36 Lopressor PO 12.5 mg BID MICHELLE Administration Risperidone 1 mg 06/27/17 18:00 06/28/17 10:48 Risperdal Tab PO 1 mg BID MICHELLE Administration Rosuvastatin Calcium 40 mg 06/27/17 22:00 06/27/17 22:10 Crestor PO 40 mg HS MICHELLE Administration Sitagliptin Phosphate 50 mg 06/28/17 10:00 06/28/17 09:37 Januvia PO 50 mg DAILY MICHELLE Administration - Patient Studies Lab Studies: Lab Studies 06/28/17 06/28/17 06/28/17 Range/Units 11:17 07:34 07:11 WBC (4.8-10.8) K/uL RBC (4.40-5.90) Mil/uL Hgb (12.0-18.0) g/dL Hct (35.0-51.0) % MCV (80.0-94.0) fL MCH (27.0-31.0) pg MCHC (33.0-37.0) g/dL RDW (11.5-14.5) % Plt Count (130-400) K/uL MPV (7.2-11.7) fL Neut % (Auto) (50.0-75.0) % Lymph % (Auto) (20.0-40.0) % [place] % (Auto) (0.0-10.0) % Eos % (Auto) (0.0-4.0) % Baso % (Auto) (0.0-2.0) % Neut # (1.8-7.0) K/uL Lymph # (1.0-4.3) K/uL [place] # (0.0-0.8) K/uL Eos # (0.0-0.7) K/uL Baso # (0.0-0.2) K/uL APTT 75 H D (21-34) SECONDS D-Dimer, Quantitative (0-243) ng/mlDDU Sodium (132-148) mmol/L Potassium (3.6-5.2) mmol/L Chloride (98-107) mmol/L Carbon Dioxide (22-30) mmol/L Anion Gap (10-20) BUN (9-20) mg/dL Creatinine (0.8-1.5) mg/dL Est GFR ( Amer) Est GFR (Non-Af Amer) POC Glucose (mg/dL) 140 H 107 (65-110) mg/dL Random Glucose (75-110) mg/dL Calcium (8.6-10.4) mg/dl Phosphorus (2.5-4.5) mg/dL Magnesium (1.6-2.3) mg/dL Total Bilirubin (0.2-1.3) mg/dL AST (17-59) U/L ALT (21-72) U/L Alkaline Phosphatase (38-126) U/L Total Creatine Kinase (55-170) U/L CK-MB (Mass) (0.0-3.38) ng/mL Troponin I (0.00-0.120) ng/mL Total Protein (6.3-8.3) g/dL Albumin (3.5-5.0) g/dL Globulin (2.2-3.9) gm/dL Albumin/Globulin Ratio (1.0-2.1) Triglycerides (0-149) mg/dL Cholesterol (0-199) mg/dL LDL Cholesterol Direct (0-129) mg/dL HDL Cholesterol (30-70) mg/dL Urine Opiates Screen (NEGATIVE) Urine Methadone Screen (NEGATIVE) Ur Barbiturates Screen (NEGATIVE) Ur Phencyclidine Scrn (NEGATIVE) Ur Amphetamines Screen (NEGATIVE) U Benzodiazepines Scrn (NEGATIVE) U Oth Cocaine Metabols (NEGATIVE) U Cannabinoids Screen (NEGATIVE) 06/28/17 06/28/17 06/28/17 Range/Units 06:25 06:23 02:01 WBC 9.7 (4.8-10.8) K/uL RBC 4.45 (4.40-5.90) Mil/uL Hgb 13.5 (12.0-18.0) g/dL Hct 39.3 (35.0-51.0) % MCV 88.4 (80.0-94.0) fL MCH 30.3 (27.0-31.0) pg MCHC 34.3 (33.0-37.0) g/dL RDW 13.9 (11.5-14.5) % Plt Count 225 (130-400) K/uL MPV 10.9 (7.2-11.7) fL Neut % (Auto) 53.1 (50.0-75.0) % Lymph % (Auto) 34.8 (20.0-40.0) % [place] % (Auto) 9.6 (0.0-10.0) % Eos % (Auto) 1.7 (0.0-4.0) % Baso % (Auto) 0.8 (0.0-2.0) % Neut # 5.2 (1.8-7.0) K/uL Lymph # 3.4 (1.0-4.3) K/uL [place] # 0.9 H (0.0-0.8) K/uL Eos # 0.2 (0.0-0.7) K/uL Baso # 0.1 (0.0-0.2) K/uL APTT 92 H D (21-34) SECONDS D-Dimer, Quantitative (0-243) ng/mlDDU Sodium 135 (132-148) mmol/L Potassium 3.6 (3.6-5.2) mmol/L Chloride 99 (98-107) mmol/L Carbon Dioxide 27 (22-30) mmol/L Anion Gap 13 (10-20) BUN 24 H (9-20) mg/dL Creatinine 1.2 (0.8-1.5) mg/dL Est GFR ( Amer) > 60 Est GFR (Non-Af Amer) > 60 POC Glucose (mg/dL) (65-110) mg/dL Random Glucose 116 H (75-110) mg/dL Calcium 9.2 (8.6-10.4) mg/dl Phosphorus 2.9 (2.5-4.5) mg/dL Magnesium 1.9 (1.6-2.3) mg/dL Total Bilirubin 0.6 (0.2-1.3) mg/dL AST 74 H D (17-59) U/L ALT 25 (21-72) U/L Alkaline Phosphatase 40 (38-126) U/L Total Creatine Kinase 263 H (55-170) U/L CK-MB (Mass) 9.84 H (0.0-3.38) ng/mL Troponin I 7.1300 H* (0.00-0.120) ng/mL Total Protein 6.9 (6.3-8.3) g/dL Albumin 3.5 (3.5-5.0) g/dL Globulin 3.4 (2.2-3.9) gm/dL Albumin/Globulin Ratio 1.0 (1.0-2.1) Triglycerides 186 H D (0-149) mg/dL Cholesterol 172 (0-199) mg/dL LDL Cholesterol Direct 104 (0-129) mg/dL HDL Cholesterol 32 (30-70) mg/dL Urine Opiates Screen (NEGATIVE) Urine Methadone Screen (NEGATIVE) Ur Barbiturates Screen (NEGATIVE) Ur Phencyclidine Scrn (NEGATIVE) Ur Amphetamines Screen (NEGATIVE) U Benzodiazepines Scrn (NEGATIVE) U Oth Cocaine Metabols (NEGATIVE) U Cannabinoids Screen (NEGATIVE) 06/27/17 06/27/17 06/27/17 Range/Units 22:24 21:29 16:12 WBC (4.8-10.8) K/uL RBC (4.40-5.90) Mil/uL Hgb (12.0-18.0) g/dL Hct (35.0-51.0) % MCV (80.0-94.0) fL MCH (27.0-31.0) pg MCHC (33.0-37.0) g/dL RDW (11.5-14.5) % Plt Count (130-400) K/uL MPV (7.2-11.7) fL Neut % (Auto) (50.0-75.0) % Lymph % (Auto) (20.0-40.0) % [place] % (Auto) (0.0-10.0) % Eos % (Auto) (0.0-4.0) % Baso % (Auto) (0.0-2.0) % Neut # (1.8-7.0) K/uL Lymph # (1.0-4.3) K/uL [place] # (0.0-0.8) K/uL Eos # (0.0-0.7) K/uL Baso # (0.0-0.2) K/uL APTT (21-34) SECONDS D-Dimer, Quantitative 246 H (0-243) ng/mlDDU Sodium (132-148) mmol/L Potassium (3.6-5.2) mmol/L Chloride (98-107) mmol/L Carbon Dioxide (22-30) mmol/L Anion Gap (10-20) BUN (9-20) mg/dL Creatinine (0.8-1.5) mg/dL Est GFR ( Amer) Est GFR (Non-Af Amer) POC Glucose (mg/dL) 119 H (65-110) mg/dL Random Glucose (75-110) mg/dL Calcium (8.6-10.4) mg/dl Phosphorus (2.5-4.5) mg/dL Magnesium (1.6-2.3) mg/dL Total Bilirubin (0.2-1.3) mg/dL AST (17-59) U/L ALT (21-72) U/L Alkaline Phosphatase (38-126) U/L Total Creatine Kinase 304 H (55-170) U/L CK-MB (Mass) 14.5 H (0.0-3.38) ng/mL Troponin I 12.6000 H* (0.00-0.120) ng/mL Total Protein (6.3-8.3) g/dL Albumin (3.5-5.0) g/dL Globulin (2.2-3.9) gm/dL Albumin/Globulin Ratio (1.0-2.1) Triglycerides (0-149) mg/dL Cholesterol (0-199) mg/dL LDL Cholesterol Direct (0-129) mg/dL HDL Cholesterol (30-70) mg/dL Urine Opiates Screen (NEGATIVE) Urine Methadone Screen (NEGATIVE) Ur Barbiturates Screen (NEGATIVE) Ur Phencyclidine Scrn (NEGATIVE) Ur Amphetamines Screen (NEGATIVE) U Benzodiazepines Scrn (NEGATIVE) U Oth Cocaine Metabols (NEGATIVE) U Cannabinoids Screen (NEGATIVE) 06/27/17 06/27/17 Range/Units 16:12 15:58 WBC (4.8-10.8) K/uL RBC (4.40-5.90) Mil/uL Hgb (12.0-18.0) g/dL Hct (35.0-51.0) % MCV (80.0-94.0) fL MCH (27.0-31.0) pg MCHC (33.0-37.0) g/dL RDW (11.5-14.5) % Plt Count (130-400) K/uL MPV (7.2-11.7) fL Neut % (Auto) (50.0-75.0) % Lymph % (Auto) (20.0-40.0) % [place] % (Auto) (0.0-10.0) % Eos % (Auto) (0.0-4.0) % Baso % (Auto) (0.0-2.0) % Neut # (1.8-7.0) K/uL Lymph # (1.0-4.3) K/uL [place] # (0.0-0.8) K/uL Eos # (0.0-0.7) K/uL Baso # (0.0-0.2) K/uL APTT (21-34) SECONDS D-Dimer, Quantitative (0-243) ng/mlDDU Sodium (132-148) mmol/L Potassium (3.6-5.2) mmol/L Chloride (98-107) mmol/L Carbon Dioxide (22-30) mmol/L Anion Gap (10-20) BUN (9-20) mg/dL Creatinine (0.8-1.5) mg/dL Est GFR ( Amer) Est GFR (Non-Af Amer) POC Glucose (mg/dL) (65-110) mg/dL Random Glucose (75-110) mg/dL Calcium (8.6-10.4) mg/dl Phosphorus (2.5-4.5) mg/dL Magnesium (1.6-2.3) mg/dL Total Bilirubin (0.2-1.3) mg/dL AST (17-59) U/L ALT (21-72) U/L Alkaline Phosphatase (38-126) U/L Total Creatine Kinase 291 H (55-170) U/L CK-MB (Mass) 14.8 H (0.0-3.38) ng/mL Troponin I 10.2000 H* (0.00-0.120) ng/mL Total Protein (6.3-8.3) g/dL Albumin (3.5-5.0) g/dL Globulin (2.2-3.9) gm/dL Albumin/Globulin Ratio (1.0-2.1) Triglycerides (0-149) mg/dL Cholesterol (0-199) mg/dL LDL Cholesterol Direct (0-129) mg/dL HDL Cholesterol (30-70) mg/dL Urine Opiates Screen Negative (NEGATIVE) Urine Methadone Screen Negative (NEGATIVE) Ur Barbiturates Screen Negative (NEGATIVE) Ur Phencyclidine Scrn Negative (NEGATIVE) Ur Amphetamines Screen Negative (NEGATIVE) U Benzodiazepines Scrn Negative (NEGATIVE) U Oth Cocaine Metabols Negative (NEGATIVE) U Cannabinoids Screen Negative (NEGATIVE) Laboratory Results - last 24 hr 06/27/17 06/27/17 06/27/17 15:58 16:12 16:12 WBC RBC Hgb Hct MCV MCH MCHC RDW Plt Count MPV Neut % (Auto) Lymph % (Auto) [place] % (Auto) Eos % (Auto) Baso % (Auto) Neut # Lymph # [place] # Eos # Baso # APTT D-Dimer, Quantitative 246 H Sodium Potassium Chloride Carbon Dioxide Anion Gap BUN Creatinine Est GFR ( Amer) Est GFR (Non-Af Amer) POC Glucose (mg/dL) Random Glucose Calcium Phosphorus Magnesium Total Bilirubin AST ALT Alkaline Phosphatase Total Creatine Kinase 291 H CK-MB (Mass) 14.8 H Troponin I 10.1999 H* Total Protein Albumin Globulin Albumin/Globulin Ratio Triglycerides Cholesterol LDL Cholesterol Direct HDL Cholesterol Urine Opiates Screen Negative Urine Methadone Screen Negative Ur Barbiturates Screen Negative Ur Phencyclidine Scrn Negative Ur Amphetamines Screen Negative U Benzodiazepines Scrn Negative U Oth Cocaine Metabols Negative U Cannabinoids Screen Negative 06/27/17 06/27/17 06/28/17 21:29 22:24 02:01 WBC RBC Hgb Hct MCV MCH MCHC RDW Plt Count MPV Neut % (Auto) Lymph % (Auto) [place] % (Auto) Eos % (Auto) Baso % (Auto) Neut # Lymph # [place] # Eos # Baso # APTT 92 H D D-Dimer, Quantitative Sodium Potassium Chloride Carbon Dioxide Anion Gap BUN Creatinine Est GFR ( Amer) Est GFR (Non-Af Amer) POC Glucose (mg/dL) 119 H Random Glucose Calcium Phosphorus Magnesium Total Bilirubin AST ALT Alkaline Phosphatase Total Creatine Kinase 304 H CK-MB (Mass) 14.5 H Troponin I 12.6000 H* Total Protein Albumin Globulin Albumin/Globulin Ratio Triglycerides Cholesterol LDL Cholesterol Direct HDL Cholesterol Urine Opiates Screen Urine Methadone Screen Ur Barbiturates Screen Ur Phencyclidine Scrn Ur Amphetamines Screen U Benzodiazepines Scrn U Oth Cocaine Metabols U Cannabinoids Screen 06/28/17 06/28/17 06/28/17 06:23 06:25 07:11 WBC 9.7 RBC 4.45 Hgb 13.5 Hct 39.3 MCV 88.4 MCH 30.3 MCHC 34.3 RDW 13.9 Plt Count 225 MPV 10.9 Neut % (Auto) 53.1 Lymph % (Auto) 34.8 [place] % (Auto) 9.6 Eos % (Auto) 1.7 Baso % (Auto) 0.8 Neut # 5.2 Lymph # 3.4 [place] # 0.9 H Eos # 0.2 Baso # 0.1 APTT 75 H D D-Dimer, Quantitative Sodium 135 Potassium 3.6 Chloride 99 Carbon Dioxide 27 Anion Gap 13 BUN 24 H Creatinine 1.2 Est GFR ( Amer) > 60 Est GFR (Non-Af Amer) > 60 POC Glucose (mg/dL) Random Glucose 116 H Calcium 9.2 Phosphorus 2.9 Magnesium 1.9 Total Bilirubin 0.6 AST 74 H D ALT 25 Alkaline Phosphatase 40 Total Creatine Kinase 263 H CK-MB (Mass) 9.84 H Troponin I 7.1300 H* Total Protein 6.9 Albumin 3.5 Globulin 3.4 Albumin/Globulin Ratio 1.0 Triglycerides 186 H D Cholesterol 172 LDL Cholesterol Direct 104 HDL Cholesterol 32 Urine Opiates Screen Urine Methadone Screen Ur Barbiturates Screen Ur Phencyclidine Scrn Ur Amphetamines Screen U Benzodiazepines Scrn U Oth Cocaine Metabols U Cannabinoids Screen 06/28/17 06/28/17 07:34 11:17 WBC RBC Hgb Hct MCV MCH MCHC RDW Plt Count MPV Neut % (Auto) Lymph % (Auto) [place] % (Auto) Eos % (Auto) Baso % (Auto) Neut # Lymph # [place] # Eos # Baso # APTT D-Dimer, Quantitative Sodium Potassium Chloride Carbon Dioxide Anion Gap BUN Creatinine Est GFR ( Amer) Est GFR (Non-Af Amer) POC Glucose (mg/dL) 107 140 H Random Glucose Calcium Phosphorus Magnesium Total Bilirubin AST ALT Alkaline Phosphatase Total Creatine Kinase CK-MB (Mass) Troponin I Total Protein Albumin Globulin Albumin/Globulin Ratio Triglycerides Cholesterol LDL Cholesterol Direct HDL Cholesterol Urine Opiates Screen Urine Methadone Screen Ur Barbiturates Screen Ur Phencyclidine Scrn Ur Amphetamines Screen U Benzodiazepines Scrn U Oth Cocaine Metabols U Cannabinoids Screen EKG/Cardiology Studies: Cardiology / EKG Studies 06/27/17 18:03 EKG [ELECTROCARDIOGRAM] Stat Comment: Mode Of Transportation: Reason For Exam: [place] 06/28/17 07:30 EKG [ELECTROCARDIOGRAM] Routine Comment: Mode Of Transportation: PORTABLE Reason For Exam: Chest Pain Fingerstick Blood Sugar Results: 140 Critical Care Progress Note - Nutrition Nutrition: Nutrition Category Date Time Status Heart Healthy Diet [DIET] Diets 06/27/17 Lunch Active Assessment/Plan - Assessment and Plan (Free Text) Assessment: 52M NSTEMI Plan: Psych: Schizophrenia, depression ([place]) Viibryd 1tab PO QD Risperidone 1mg PO BID Depakote 500mg PO BID valproic acid level Cardio: NSTEMI, Paroxysmal AFib, HTN, HLD ([facility]) ASA 81mg PO QD Chlorthalidone 25mg PO QD Plavix 75mg PO QD Heparin drip Metoprolol 12.5mg PO BID Crestor 40mg PO QHS Pulm: Asthma GI: no active problems Renal: no active problems Endo: DM2 Insulin Sliding scale Glimepiride 2mg PO QD Januvia 50mg PO QD Prophylaxis: Pepcid 20mg PO QD, SCD <Max Khan S - Last Filed: 06/28/17 17:39> CCU Objective - Vital Signs / Intake & Output Vital Signs (Last 4 hours): Vital Signs Temp Pulse Resp BP Pulse Ox 06/28/17 17:00 84 25 H 95 06/28/17 16:59 87 50 H 105/60 93 L 06/28/17 16:00 98.7 F 86 98 06/28/17 15:59 81 111/66 99 06/28/17 15:00 81 23 97 06/28/17 14:59 84 17 108/66 97 06/28/17 14:00 84 21 97 06/28/17 13:59 84 30 H 117/82 96 Intake and Output (Last 8hrs): Intake & Output 06/28/17 06/28/17 06/28/17 06:59 14:59 22:59 Intake Total 308.0 1078.0 280.5 Output Total 700 700 Balance -392.0 378.0 280.5 Weight 247 lb 12.793 oz Intake: IV 250 Intake, IV Amount 108.0 108.0 40.5 Left Antecubital 108.0 108.0 40.5 Oral 200 720 240 Output: Urine 700 700 Urine, Voided 700 700 Other: # Voids Urine, Voided 1 # Bowel Movements 0 - Medications Active Medications: Active Medications Generic Name Dose Route Start Last Admin Trade Name Freq PRN Reason Stop Dose Admin Acetaminophen 650 mg 06/27/17 20:50 06/28/17 13:48 Tylenol 325mg Tab PO 650 mg Q6 PRN Administration Headache Aspirin 81 mg 06/28/17 10:00 06/28/17 09:43 Aspirin Chewable PO 81 mg DAILY MICHELLE Administration Chlorthalidone 25 mg 06/28/17 10:00 06/28/17 09:38 Hygroton PO 25 mg DAILY MICHELLE Administration Clopidogrel Bisulfate 75 mg 06/28/17 10:00 06/28/17 09:37 Plavix PO 75 mg DAILY MICHELLE Administration Divalproex Sodium 500 mg 06/28/17 14:00 06/28/17 13:[address] PO 500 mg TID MICHELLE Administration Famotidine 20 mg 06/27/17 21:30 06/28/17 09:37 Pepcid PO 20 mg DAILY MICHELLE Administration Glimepiride 2 mg 06/28/17 10:00 01/30/18 09:37 Amaryl PO 2 mg DAILY MICHELLE Administration Home Med 1 tab 06/28/17 10:00 Patient's Own Medication PO DAILY MICHELLE Heparin Sodium/Sodium Chloride 25,000 units in 250 mls @ 13.488 mls/hr 21:42 06/28/17 12:29 Heparin 11714 Units/250ml 1/2 Normal Saline IV 12 units/kg/hr .[id number] PRN 13.488 mls/hr ADJUST RATE PER PROTOCOL Administration Protocol 12 UNITS/KG/HR Insulin Human Regular 0 unit 06/27/17 22:00 06/28/17 16:46 Novolin R SC Not Given ACHS [facility] Protocol Metoprolol Tartrate 12.5 mg 06/27/17 18:00 06/28/17 09:36 Lopressor PO 12.5 mg BID MICHELLE Administration Risperidone 1 mg 06/27/17 18:00 06/28/17 10:48 Risperdal Tab PO 1 mg BID MICHELLE Administration Rosuvastatin Calcium 40 mg 06/27/17 22:00 06/27/17 22:10 Crestor PO 40 mg HS MICHELLE Administration Sitagliptin Phosphate 50 mg 06/28/17 10:00 06/28/17 09:37 Januvia PO 50 mg DAILY MICHELLE Administration - Patient Studies Lab Studies: Lab Studies 06/28/17 06/28/17 06/28/17 Range/Units 16:14 13:42 11:17 WBC (4.8-10.8) K/uL RBC (4.40-5.90) Mil/uL Hgb (12.0-18.0) g/dL Hct (35.0-51.0) % MCV (80.0-94.0) fL MCH (27.0-31.0) pg MCHC (33.0-37.0) g/dL RDW (11.5-14.5) % Plt Count (130-400) K/uL MPV (7.2-11.7) fL Neut % (Auto) (50.0-75.0) % Lymph % (Auto) (20.0-40.0) % [place] % (Auto) (0.0-10.0) % Eos % (Auto) (0.0-4.0) % Baso % (Auto) (0.0-2.0) % Neut # (1.8-7.0) K/uL Lymph # (1.0-4.3) K/uL [place] # (0.0-0.8) K/uL Eos # (0.0-0.7) K/uL Baso # (0.0-0.2) K/uL APTT (21-34) SECONDS Sodium (132-148) mmol/L Potassium (3.6-5.2) mmol/L Chloride (98-107) mmol/L Carbon Dioxide (22-30) mmol/L Anion Gap (10-20) BUN (9-20) mg/dL Creatinine (0.8-1.5) mg/dL Est GFR ( Amer) Est GFR (Non-Af Amer) POC Glucose (mg/dL) 114 H 140 H (65-110) mg/dL Random Glucose (75-110) mg/dL Calcium (8.6-10.4) mg/dl Phosphorus (2.5-4.5) mg/dL Magnesium (1.6-2.3) mg/dL Total Bilirubin (0.2-1.3) mg/dL AST (17-59) U/L ALT (21-72) U/L Alkaline Phosphatase (38-126) U/L Total Creatine Kinase (55-170) U/L CK-MB (Mass) (0.0-3.38) ng/mL Troponin I (0.00-0.120) ng/mL Total Protein (6.3-8.3) g/dL Albumin (3.5-5.0) g/dL Globulin (2.2-3.9) gm/dL Albumin/Globulin Ratio (1.0-2.1) Triglycerides (0-149) mg/dL Cholesterol (0-199) mg/dL LDL Cholesterol Direct (0-129) mg/dL HDL Cholesterol (30-70) mg/dL Valproic Acid 49.4 L (50.0-100.0) ug/mL 06/28/17 06/28/17 06/28/17 Range/Units 07:34 07:11 06:25 WBC 9.7 (4.8-10.8) K/uL RBC 4.45 (4.40-5.90) Mil/uL Hgb 13.5 (12.0-18.0) g/dL Hct 39.3 (35.0-51.0) % MCV 88.4 (80.0-94.0) fL MCH 30.3 (27.0-31.0) pg MCHC 34.3 (33.0-37.0) g/dL RDW 13.9 (11.5-14.5) % Plt Count 225 (130-400) K/uL MPV 10.9 (7.2-11.7) fL Neut % (Auto) 53.1 (50.0-75.0) % Lymph % (Auto) 34.8 (20.0-40.0) % [place] % (Auto) 9.6 (0.0-10.0) % Eos % (Auto) 1.7 (0.0-4.0) % Baso % (Auto) 0.8 (0.0-2.0) % Neut # 5.2 (1.8-7.0) K/uL Lymph # 3.4 (1.0-4.3) K/uL [place] # 0.9 H (0.0-0.8) K/uL Eos # 0.2 (0.0-0.7) K/uL Baso # 0.1 (0.0-0.2) K/uL APTT 75 H D (21-34) SECONDS Sodium (132-148) mmol/L Potassium (3.6-5.2) mmol/L Chloride (98-107) mmol/L Carbon Dioxide (22-30) mmol/L Anion Gap (10-20) BUN (9-20) mg/dL Creatinine (0.8-1.5) mg/dL Est GFR ( Amer) Est GFR (Non-Af Amer) POC Glucose (mg/dL) 107 (65-110) mg/dL Random Glucose (75-110) mg/dL Calcium (8.6-10.4) mg/dl Phosphorus (2.5-4.5) mg/dL Magnesium (1.6-2.3) mg/dL Total Bilirubin (0.2-1.3) mg/dL AST (17-59) U/L ALT (21-72) U/L Alkaline Phosphatase (38-126) U/L Total Creatine Kinase (55-170) U/L CK-MB (Mass) (0.0-3.38) ng/mL Troponin I (0.00-0.120) ng/mL Total Protein (6.3-8.3) g/dL Albumin (3.5-5.0) g/dL Globulin (2.2-3.9) gm/dL Albumin/Globulin Ratio (1.0-2.1) Triglycerides (0-149) mg/dL Cholesterol (0-199) mg/dL LDL Cholesterol Direct (0-129) mg/dL HDL Cholesterol (30-70) mg/dL Valproic Acid (50.0-100.0) ug/mL 06/28/17 06/28/17 06/27/17 Range/Units 06:23 02:01 22:24 WBC (4.8-10.8) K/uL RBC (4.40-5.90) Mil/uL Hgb (12.0-18.0) g/dL Hct (35.0-51.0) % MCV (80.0-94.0) fL MCH (27.0-31.0) pg MCHC (33.0-37.0) g/dL RDW (11.5-14.5) % Plt Count (130-400) K/uL MPV (7.2-11.7) fL Neut % (Auto) (50.0-75.0) % Lymph % (Auto) (20.0-40.0) % [place] % (Auto) (0.0-10.0) % Eos % (Auto) (0.0-4.0) % Baso % (Auto) (0.0-2.0) % Neut # (1.8-7.0) K/uL Lymph # (1.0-4.3) K/uL [place] # (0.0-0.8) K/uL Eos # (0.0-0.7) K/uL Baso # (0.0-0.2) K/uL APTT 92 H D (21-34) SECONDS Sodium 135 (132-148) mmol/L Potassium 3.6 (3.6-5.2) mmol/L Chloride 99 (98-107) mmol/L Carbon Dioxide 27 (22-30) mmol/L Anion Gap 13 (10-20) BUN 24 H (9-20) mg/dL Creatinine 1.2 (0.8-1.5) mg/dL Est GFR ( Amer) > 60 Est GFR (Non-Af Amer) > 60 POC Glucose (mg/dL) (65-110) mg/dL Random Glucose 116 H (75-110) mg/dL Calcium 9.2 (8.6-10.4) mg/dl Phosphorus 2.9 (2.5-4.5) mg/dL Magnesium 1.9 (1.6-2.3) mg/dL Total Bilirubin 0.6 (0.2-1.3) mg/dL AST 74 H D (17-59) U/L ALT 25 (21-72) U/L Alkaline Phosphatase 40 (38-126) U/L Total Creatine Kinase 263 H 304 H (55-170) U/L CK-MB (Mass) 9.84 H 14.5 H (0.0-3.38) ng/mL Troponin I 7.1300 H* 12.6000 H* (0.00-0.120) ng/mL Total Protein 6.9 (6.3-8.3) g/dL Albumin 3.5 (3.5-5.0) g/dL Globulin 3.4 (2.2-3.9) gm/dL Albumin/Globulin Ratio 1.0 (1.0-2.1) Triglycerides 186 H D (0-149) mg/dL Cholesterol 172 (0-199) mg/dL LDL Cholesterol Direct 104 (0-129) mg/dL HDL Cholesterol 32 (30-70) mg/dL Valproic Acid (50.0-100.0) ug/mL 06/27/17 Range/Units 21:29 WBC (4.8-10.8) K/uL RBC (4.40-5.90) Mil/uL Hgb (12.0-18.0) g/dL Hct (35.0-51.0) % MCV (80.0-94.0) fL MCH (27.0-31.0) pg MCHC (33.0-37.0) g/dL RDW (11.5-14.5) % Plt Count (130-400) K/uL MPV (7.2-11.7) fL Neut % (Auto) (50.0-75.0) % Lymph % (Auto) (20.0-40.0) % [place] % (Auto) (0.0-10.0) % Eos % (Auto) (0.0-4.0) % Baso % (Auto) (0.0-2.0) % Neut # (1.8-7.0) K/uL Lymph # (1.0-4.3) K/uL [place] # (0.0-0.8) K/uL Eos # (0.0-0.7) K/uL Baso # (0.0-0.2) K/uL APTT (21-34) SECONDS Sodium (132-148) mmol/L Potassium (3.6-5.2) mmol/L Chloride (98-107) mmol/L Carbon Dioxide (22-30) mmol/L Anion Gap (10-20) BUN (9-20) mg/dL Creatinine (0.8-1.5) mg/dL Est GFR ( Amer) Est GFR (Non-Af Amer) POC Glucose (mg/dL) 119 H (65-110) mg/dL Random Glucose (75-110) mg/dL Calcium (8.6-10.4) mg/dl Phosphorus (2.5-4.5) mg/dL Magnesium (1.6-2.3) mg/dL Total Bilirubin (0.2-1.3) mg/dL AST (17-59) U/L ALT (21-72) U/L Alkaline Phosphatase (38-126) U/L Total Creatine Kinase (55-170) U/L CK-MB (Mass) (0.0-3.38) ng/mL Troponin I (0.00-0.120) ng/mL Total Protein (6.3-8.3) g/dL Albumin (3.5-5.0) g/dL Globulin (2.2-3.9) gm/dL Albumin/Globulin Ratio (1.0-2.1) Triglycerides (0-149) mg/dL Cholesterol (0-199) mg/dL LDL Cholesterol Direct (0-129) mg/dL HDL Cholesterol (30-70) mg/dL Valproic Acid (50.0-100.0) ug/mL Laboratory Results - last 24 hr 06/27/17 06/27/17 06/28/17 21:29 22:24 02:01 WBC RBC Hgb Hct MCV MCH MCHC RDW Plt Count MPV Neut % (Auto) Lymph % (Auto) [place] % (Auto) Eos % (Auto) Baso % (Auto) Neut # Lymph # [place] # Eos # Baso # APTT 92 H D Sodium Potassium Chloride Carbon Dioxide Anion Gap BUN Creatinine Est GFR ( Amer) Est GFR (Non-Af Amer) POC Glucose (mg/dL) 119 H Random Glucose Calcium Phosphorus Magnesium Total Bilirubin AST ALT Alkaline Phosphatase Total Creatine Kinase 304 H CK-MB (Mass) 14.5 H Troponin I 12.6000 H* Total Protein Albumin Globulin Albumin/Globulin Ratio Triglycerides Cholesterol LDL Cholesterol Direct HDL Cholesterol Valproic Acid 06/28/17 06/28/17 06/28/17 06:23 06:25 07:11 WBC 9.7 RBC 4.45 Hgb 13.5 Hct 39.3 MCV 88.4 MCH 30.3 MCHC 34.3 RDW 13.9 Plt Count 225 MPV 10.9 Neut % (Auto) 53.1 Lymph % (Auto) 34.8 [place] % (Auto) 9.6 Eos % (Auto) 1.7 Baso % (Auto) 0.8 Neut # 5.2 Lymph # 3.4 [place] # 0.9 H Eos # 0.2 Baso # 0.1 APTT 75 H D Sodium 135 Potassium 3.6 Chloride 99 Carbon Dioxide 27 Anion Gap 13 BUN 24 H Creatinine 1.2 Est GFR ( Amer) > 60 Est GFR (Non-Af Amer) > 60 POC Glucose (mg/dL) Random Glucose 116 H Calcium 9.2 Phosphorus 2.9 Magnesium 1.9 Total Bilirubin 0.6 AST 74 H D ALT 25 Alkaline Phosphatase 40 Total Creatine Kinase 263 H CK-MB (Mass) 9.84 H Troponin I 7.1300 H* Total Protein 6.9 Albumin 3.5 Globulin 3.4 Albumin/Globulin Ratio 1.0 Triglycerides 186 H D Cholesterol 172 LDL Cholesterol Direct 104 HDL Cholesterol 32 Valproic Acid 06/28/17 06/28/17 06/28/17 07:34 11:17 13:42 WBC RBC Hgb Hct MCV MCH MCHC RDW Plt Count MPV Neut % (Auto) Lymph % (Auto) [place] % (Auto) Eos % (Auto) Baso % (Auto) Neut # Lymph # [place] # Eos # Baso # APTT Sodium Potassium Chloride Carbon Dioxide Anion Gap BUN Creatinine Est GFR ( Amer) Est GFR (Non-Af Amer) POC Glucose (mg/dL) 107 140 H Random Glucose Calcium Phosphorus Magnesium Total Bilirubin AST ALT Alkaline Phosphatase Total Creatine Kinase CK-MB (Mass) Troponin I Total Protein Albumin Globulin Albumin/Globulin Ratio Triglycerides Cholesterol LDL Cholesterol Direct HDL Cholesterol Valproic Acid 49.4 L 06/28/17 16:14 WBC RBC Hgb Hct MCV MCH MCHC RDW Plt Count MPV Neut % (Auto) Lymph % (Auto) [place] % (Auto) Eos % (Auto) Baso % (Auto) Neut # Lymph # [place] # Eos # Baso # APTT Sodium Potassium Chloride Carbon Dioxide Anion Gap BUN Creatinine Est GFR ( Amer) Est GFR (Non-Af Amer) POC Glucose (mg/dL) 114 H Random Glucose Calcium Phosphorus Magnesium Total Bilirubin AST ALT Alkaline Phosphatase Total Creatine Kinase CK-MB (Mass) Troponin I Total Protein Albumin Globulin Albumin/Globulin Ratio Triglycerides Cholesterol LDL Cholesterol Direct HDL Cholesterol Valproic Acid EKG/Cardiology Studies: Cardiology / EKG Studies 06/27/17 18:03 EKG [ELECTROCARDIOGRAM] Stat Comment: Mode Of Transportation: Reason For Exam: [place] 06/28/17 07:30 EKG [ELECTROCARDIOGRAM] Routine Comment: Mode Of Transportation: PORTABLE Reason For Exam: Chest Pain Critical Care Progress Note - Nutrition Nutrition: Nutrition Category Date Time Status Heart Healthy Diet [DIET] Diets 06/27/17 Lunch Active NPO Diet [DIET] Diets 06/29/17 Lunch Active Attending/Attestation - Attestation I have personally seen and examined this patient.: Yes I have fully participated in the care of the patient.: Yes I have reviewed all pertinent clinical information: Yes Notes (Text): 06/28/17 17:38 Patient seen and examined in the intensive care unit. Discussed with house staff in the morning rounds Patient being treatedfor non-ST elevation [place] Cardiac cath tomorrow at 3 PM No further chest pain Continue present treatment
[2017-06-28] MEDS: Heparin25000 units/250ml 1/2NS 25,000 UNITS/250 ML BAG IV PRN (12:29)
--- NOTE | 2017-06-28 19:04 | PN ---
DATE: SUBJECTIVE: Patient denies any chest pain. The patient's mother at the bedside. No reports of ventricular tachycardia. PHYSICAL EXAMINATION VITAL SIGNS: Blood pressure 117/82, heart rate 84, respirations 21, temperature 97.6. HEENT: Normocephalic. CHEST: Clear. HEART: S1, S2 regular. EXTREMITIES: No edema. LABORATORY DATA: SMA-7 is within normal limits except for glucose 116, BUN 24. Today's troponin is 7.13. Today's hemoglobin, hematocrit, white count and platelet count are within normal limits. scan, low probability for PE. Repeat 12-lead EKG yesterday revealed sinuses, incomplete right bundle branch block with nonspecific ST-T wave changes. ASSESSMENT: 1. Status post non-ST elevation myocardial infarction. 2. Hypertension and diabetes mellitus. RECOMMENDATIONS: Continue current aspirin and Plavix, Crestor and therapeutic intravenous heparin regimen, continue current Lopressor. Cardiac catheterization was discussed with the patient and his mom who has agreed for the procedure, which is scheduled for tomorrow at 3:00 p.m. Prasanth Sargent MD
--- NOTE | 2017-06-28 22:50 | CON ---
DATE: PSYCHIATRIC CONSULTATION CHIEF COMPLAINT AND REASON FOR CONSULTATION: Patient is referred by Dr. Lopez for co-management. Patient has history of schizophrenia, on multiple psych medication. HISTORY OF PRESENT ILLNESS: This is the case of a 52-year-old patient who is with history of schizophrenia, was admitted here for evaluation of chest pain radiating to the left arm. Patient has history of schizophrenia, referred for co-management. Patient has been taking multiple psych medications, referred for co-management. Patient states that he has been taking his medicines faithfully. Patient reports that he has been taking Risperdal 1 mg b.i.d. Patient is on Viibryd 20 mg daily, and also Depakote 500 mg three times a day. He said he has been doing very well. He has not been in hospital since long time. He has been sleeping and eating well; however, patient states that he has been having chest pain. Today, when seen in the ICU, he seems to be doing well. He states he has been compliant with psych meds, but asking if he can be given the vilazodone which he has been taking for long time, stating that it is his maintenance med. I did tell him that if family can bring it and then he can take it in the hospital. PAST PSYCHIATRIC HISTORY: Long history of schizophrenia with multiple psychiatric admissions, but has been doing well. He said his daughter is giving the meds. MEDICATIONS: This patient is currently on Depakote, Risperdal, and vilazodone. ALLERGIES: PATIENT HAS NO ALLERGIES. DRUG AND ALCOHOL HISTORY: Denies any. MEDICAL HISTORY: Patient has history of diabetes, obesity, chest pain, hyperkalemia. PSYCHOSOCIAL HISTORY: Patient is disabled secondary to psych problems. Lives with his family. VITAL SIGNS: Temperature is 98.9, pulse rate is 87, blood pressure 115/77, respirations 20, oxygen saturation is 98%. LIST OFMEDICATIONS: That the patient is taking includes the following meds: Patient is on glimepiride; aspirin; rosuvastatin; Depakote that patient is taking 500 mg twice a day, but the patient used to take three times a day; patient is on Januvia, metoprolol, and then Risperdal 1 mg twice a day, and patient used to take Viibryd 20 mg daily. REVIEW OF SYSTEMS: GENERAL: Patient is alert, oriented x3, seen in his room, cooperative. He said that he is feeling better, no chest pain. SKIN: No diaphoresis. HEENT:. No headache or dizziness. NECK: Supple. RESPIRATORY: No dyspnea. No chest pain. GASTROINTESTINAL: No nausea or vomiting. EXTREMITIES: The patient is moving extremities. MUSCULOSKELETAL: Feels weak. NEUROLOGIC: Alert and oriented x3. GENITOURINARY: No dysuria. MENTAL STATUS EXAMINATION: Obese male who looks stated age, oriented x3. Mood is calm. Affect is reactive. Speech spontaneous. Thought process, coherent. Thought content, no overt psychosis. No suicidal, homicidal ideation. Patient wants to continue his current meds. Attention and memory seems to be fair. Insight and judgment fair. Impulse control is fair. IMPRESSION: History of chronic schizophrenia, stable; chest pain as well as history of obesity; uncontrolled diabetes. PLAN AND RECOMMENDATION: Patient is seen and meds reviewed. Patient will continue his Risperdal 1 mg b.i.d. and then will continue all his meds from home, the vilazodone 20 mg daily; however, we will change the Depakote dose to 500 mg p.o. t.i.d. as his maintenance dose was three times a day. We will also check his Depakote level if not done. His drug screen is negative. We will follow up mental status accordingly. Thank you very much for the consult. Jarad Sharma MD
[2017-06-29 06:30] LABS: HEMOGLOBIN 13.8 g/dL (12.0-18.0); MEAN CELL VOLUME 87.9 fL (80.0-94.0); MEAN CORPUSCULAR HEMOGLOBIN 30.5 pg (27.0-31.0); MEAN CORPUSCULAR HGB CONC 34.7 g/dL (33.0-37.0); MEAN PLATELET VOLUME 11.3 fL (7.2-11.7); RBC 4.54 Mil/uL (4.40-5.90); RED CELL DISTRIBUTION WIDTH 13.8 % (11.5-14.5); WHITE BLOOD COUNT 8.7 K/uL (4.8-10.8)
[2017-06-29] MEDS: Heparin25000 units/250ml 1/2NS 25,000 UNITS/250 ML BAG IV PRN (06:30)
[2017-06-29 07:00] LABS: ALB/GLOB RATIO 1.1 (1.0-2.1); ALBUMIN 3.6 g/dL (3.5-5.0); ALT/SGPT 23 U/L (21-72); AST/SGOT 37 U/L (17-59); BLOOD UREA NITROGEN 21 mg/dL (9-20); CALCIUM 9.1 mg/dl (8.6-10.4); GFR AFRICAN-AMERICAN > 60; GFR NON-AFRICAN AMERICAN > 60; MAGNESIUM 1.8 mg/dL (1.6-2.3)
--- NOTE | 2017-06-29 07:02 | PN ---
DATE: SUBJECTIVE: Today, patient is seen in ICU and he denies any chest pain. No shortness of breath, no palpitations. PHYSICAL EXAMINATION: VITAL SIGNS: Patient has a blood pressure of 108/66, pulse 81, respirations 23. GENERAL: Patient is obese. NECK: Supple. No JVD. LUNGS: Clear now. HEART: Regular rate and rhythm. Positive murmur. ABDOMEN: Obese, mild epigastric tenderness. EXTREMITIES: There is a chronic leg edema noted. LABORATORY DATA: Show that WBC is 9.7, hemoglobin 13.5, hematocrit 39.3, platelet is 225. Chemistries: Sodium is 135, potassium 3.6, chloride 99, BUN 24, creatinine 1.2 and glucose 116. AST is 74, ALT 25 and alkaline phosphatase is 40. The CPK is 263, now going down; the CK-MB is 9.84, going down, and the troponin is 7.13, going down from 12.6. PLAN: The case was discussed with Dr. Sargent and at this time, we consider cardiac catheterization when patient is transition from the mother. Consult is ordered for Dr. Sharma, psychiatrist. Eduardo Lopez MD
[2017-06-29] MEDS: (Novolin R) Insulin Human Regular 100 units/ml vial SC SCH ×4 (07:58→22:00)
--- NOTE | 2017-06-29 08:52 | RAD ---
HISTORY: sob COMPARISON: 06/27/2017 FINDINGS: LUNGS: No infiltrate. Minimal linear scar/ atelectasis at left base, unchanged. PLEURA: No significant pleural effusion identified, no pneumothorax apparent. CARDIOVASCULAR: Mild cardiomegaly. Possibly artifactual due to portable technique and lordotic positioning. OSSEOUS STRUCTURES: No significant abnormalities. VISUALIZED UPPER ABDOMEN: Normal. OTHER FINDINGS: None. IMPRESSION: No active disease.
[2017-06-29] MEDS: Divalproex 500 mg DR Tab PO SCH ×3 (09:44→19:24)
[2017-06-29] MEDS ORDERED: VIIBRYD 20 MG PO SCH (10:00)
[2017-06-29 10:17] LABS: LYMPH # 1.8 K/uL (1.0-4.3); MONO # 1.3 K/uL (0.0-0.8); NEUT # 5.5 K/uL (1.8-7.0)
[2017-06-29 10:18] LABS: EOS # 0.2 K/uL (0.0-0.7)
--- NOTE | 2017-06-29 11:00 | CARD ---
APPROVED REPORT EXAM: Two-dimensional and M-mode echocardiogram with Doppler and color Doppler. Other Information Quality : PoorRhythm : Technically limited study due to body habitus. 2D DIMENSIONS IVSd1.0 (0.7-1.1cm)LVDd5.2 (3.9-5.9cm) PWd1.5 (0.7-1.1cm)LVDs3.9 (2.5-4.0cm) FS (%) 25.6 %LVEF (%)50.1 (>50%) M-Mode DIMENSIONS Left Atrium (MM)3.51 (2.5-4.0cm)IVSd1.13 (0.7-1.1cm) Aortic Root3.05 (2.2-3.7cm)LVDd5.31 (4.0-5.6cm) Aortic Cusp Exc.1.84 (1.5-2.0cm)PWd1.68 (0.7-1.1cm) FS (%) 29 %LVDs3.79 (2.0-3.8cm) LVEF (%)55 (>50%) Mitral Valve MV E Kfyeelai58.8cm/sMV A Mqsnfgiw58.8cm/sE/A ratio0.9 TDI E/Lateral E'0.0E/Medial E'0.0 LEFT VENTRICLE The left ventricle is normal size. There is mild concentric left ventricular hypertrophy. The ejection fraction is moderately to severely impaired. EF estimated visually at 30-35% Biplane measurements of EF = 30% There is global hypokinesis of the left ventricle. Transmitral Doppler flow pattern is Grade I-abnormal relaxation pattern. No left ventricle thrombus noted on this study. RIGHT VENTRICLE The right ventricle is normal size. There is normal right ventricular wall thickness. The right ventricular systolic function is normal. ATRIA The left atrium size is normal. The right atrium size is normal. The interatrial septum is intact with no evidence for an atrial septal defect. AORTIC VALVE The aortic valve is mildly sclerotic. Leaflets not clearly visualized No aortic regurgitation is present. There is no aortic valvular stenosis. MITRAL VALVE The mitral valve is normal in structure. There is no evidence of mitral valve prolapse. There is no mitral valve stenosis. There is no mitral valve regurgitation noted. TRICUSPID VALVE The tricuspid valve is normal in structure. There is trace to mild tricuspid regurgitation. There is no tricuspid valve stenosis. PULMONIC VALVE The pulmonary valve is normal in structure. There is mild pulmonic valvular regurgitation. There is no pulmonic valvular stenosis. GREAT VESSELS The aortic root is normal in size. The ascending aorta is normal in size. The IVC is normal in size and collapses >50% with inspiration. PERICARDIAL EFFUSION There is no pericardial effusion. There is no pleural effusion. <Conclusion> The ejection fraction is moderately to severely impaired. EF estimated visually at 30-35% Biplane measurements of EF = 30% There is global hypokinesis of the left ventricle. Transmitral Doppler flow pattern is Grade I-abnormal relaxation pattern. The aortic valve is mildly sclerotic. Leaflets not clearly visualized
[2017-06-29] MEDS ORDERED: Potassium Chloride 20 mEq/15 ml LIQ UD PO ONE (11:30)
--- NOTE | 2017-06-29 11:56 | CP.CCUPN ---
<Jeb Cuellar - Last Filed: 06/29/17 11:53> CCU Subjective - Physician Review Subjective (Free Text): 06/29/17 11:53 patient seen and examined at bedside doing well no complaints of chest pain or sob no fevers last BM last night chelo diet going to Cath this afternoon CCU Objective - Vital Signs / Intake & Output Vital Signs (Last 4 hours): Vital Signs Temp Pulse Resp BP Pulse Ox 06/29/17 11:01 91 H 27 H 129/90 96 06/29/17 11:00 95 H 23 95 06/29/17 10:01 95 H 25 H 127/93 H 95 06/29/17 10:00 92 H 22 96 06/29/17 09:01 97 H 139/91 H 83 L 06/29/17 09:00 96 H 96 06/29/17 08:01 91 H 18 134/90 97 06/29/17 08:00 98.4 F 85 18 99 Intake and Output (Last 8hrs): Intake & Output 06/28/17 06/29/17 06/29/17 22:59 06:59 14:59 Intake Total 588.0 585.85 54.0 Output Total 900 600 400 Balance -312.0 -14.15 -346.0 Weight 244 lb 11.41 oz Intake: IV 250 Intake, IV Amount 108.0 95.85 54.0 Left Antecubital 108.0 95.85 54.0 Oral 480 240 Output: Urine 900 600 400 Urine, Voided 900 600 400 Other: # Voids Urine, Voided 1 2 # Bowel Movements 1 - Physical Exam Physical Exam Limitations: Negative for: Altered Mental Status Head: Positive for: Atraumatic, Normocephalic Pupils: Positive for: PERRL Extroacular Muscles: Positive for: EOMI Conjunctiva: Positive for: Normal Mouth: Positive for: Moist Mucous Membranes Neck: Positive for: Normal Range of Motion Respiratory/Chest: Positive for: Clear to Auscultation Cardiovascular: Positive for: Regular Rate and Rhythm Abdomen: Positive for: Normal Bowel Sounds. Negative for: Tenderness, Distention Skin: Positive for: Warm, Dry Psychiatric: Positive for: Alert, Oriented x 3 - Medications Active Medications: Active Medications Generic Name Dose Route Start Last Admin Trade Name Freq PRN Reason Stop Dose Admin Acetaminophen 650 mg 06/27/17 20:50 06/28/17 13:48 Tylenol 325mg Tab PO 650 mg Q6 PRN Administration Headache Aspirin 81 mg 06/28/17 10:00 06/29/17 09:47 Aspirin Chewable PO 81 mg DAILY [facility] Administration Chlorthalidone 25 mg 06/28/17 10:00 06/29/17 09:43 Hygroton PO 25 mg DAILY [facility] Administration Clopidogrel Bisulfate 75 mg 06/28/17 10:00 06/29/17 09:41 Plavix PO 75 mg DAILY [facility] Administration Divalproex Sodium 500 mg 06/28/17 14:00 06/29/17 09:[address] PO 500 mg TID [facility] Administration Famotidine 20 mg 06/27/17 21:30 06/29/17 09:43 Pepcid PO 20 mg DAILY [facility] Administration Glimepiride 2 mg 06/28/17 10:00 06/29/17 09:44 Amaryl PO Not Given DAILY [facility] Home Med 1 tab 06/28/17 10:00 Patient's Own Medication PO DAILY [facility] Heparin Sodium/Sodium Chloride 25,000 units in 250 mls @ 13.488 mls/hr 21:42 06/29/17 06:30 Heparin 06368 Units/250ml 1/2 Normal Saline IV 12 units/kg/hr .[id number] PRN 13.488 mls/hr ADJUST RATE PER PROTOCOL Administration Protocol 12 UNITS/KG/HR Insulin Human Regular 0 unit 06/27/17 22:00 06/29/17 07:58 Novolin R SC Not Given ACHS [facility] Protocol Metoprolol Tartrate 12.5 mg 06/27/17 18:00 06/29/17 09:43 Lopressor PO 12.5 mg BID [facility] Administration Risperidone 1 mg 06/27/17 18:00 06/29/17 09:41 Risperdal Tab PO 1 mg BID [facility] Administration Rosuvastatin Calcium 40 mg 06/27/17 22:00 06/28/17 21:45 Crestor PO 40 mg HS [facility] Administration Sitagliptin Phosphate 50 mg 06/28/17 10:00 06/29/17 09:44 Januvia PO Not Given DAILY [facility] - Patient Studies Lab Studies: Microbiology Studies 06/27/17 20:58 MRSA Culture (Admit) - Final Naris MRSA NOT DETECTED Lab Studies 06/29/17 06/29/1706/29/18 Range/Units 11:20 07:20 06:19 WBC (4.8-10.8) K/uL RBC (4.40-5.90) Mil/uL Hgb (12.0-18.0) g/dL Hct (35.0-51.0) % MCV (80.0-94.0) fL MCH (27.0-31.0) pg MCHC (33.0-37.0) g/dL RDW (11.5-14.5) % Plt Count (130-400) K/uL MPV (7.2-11.7) fL Neut % (Auto) (50.0-75.0) % Lymph % (Auto) (20.0-40.0) % Fallon % (Auto) (0.0-10.0) % Eos % (Auto) (0.0-4.0) % Baso % (Auto) (0.0-2.0) % Neut # (Auto) (1.8-7.0) K/uL Lymph # (Auto) (1.0-4.3) K/uL Fallon # (Auto) (0.0-0.8) K/uL Eos # (Auto) (0.0-0.7) K/uL Baso # (Auto) (0.0-0.2) K/uL APTT (21-34) SECONDS Sodium 131 L (132-148) mmol/L Potassium 3.5 L (3.6-5.2) mmol/L Chloride 96 L (98-107) mmol/L Carbon Dioxide 28 (22-30) mmol/L Anion Gap 11 (10-20) BUN 21 H (9-20) mg/dL Creatinine 1.2 (0.8-1.5) mg/dL Est GFR ( Amer) > 60 Est GFR (Non-Af Amer) > 60 POC Glucose (mg/dL) 111 H 112 H (65-110) mg/dL Random Glucose 114 H (75-110) mg/dL Calcium 9.1 (8.6-10.4) mg/dl Phosphorus 3.3 (2.5-4.5) mg/dL Magnesium 1.8 (1.6-2.3) mg/dL Total Bilirubin 0.4 (0.2-1.3) mg/dL AST 37 (17-59) U/L ALT 23 (21-72) U/L Alkaline Phosphatase 44 (38-126) U/L Total Protein 6.9 (6.3-8.3) g/dL Albumin 3.6 (3.5-5.0) g/dL Globulin 3.2 (2.2-3.9) gm/dL Albumin/Globulin Ratio 1.1 (1.0-2.1) Valproic Acid (50.0-100.0) ug/mL 06/29/17 06/29/17 06/28/17 Range/Units 06:18 06:18 21:11 WBC 8.7 (4.8-10.8) K/uL RBC 4.54 (4.40-5.90) Mil/uL Hgb 13.8 (12.0-18.0) g/dL Hct 39.9 (35.0-51.0) % MCV 87.9 (80.0-94.0) fL MCH 30.5 (27.0-31.0) pg MCHC 34.7 (33.0-37.0) g/dL RDW 13.8 (11.5-14.5) % Plt Count 179 (130-400) K/uL MPV 11.3 (7.2-11.7) fL Neut % (Auto) 63.0 (50.0-75.0) % Lymph % (Auto) 19.0 L (20.0-40.0) % Fallon % (Auto) 15.0 H (0.0-10.0) % Eos % (Auto) 3.0 (0.0-4.0) % Baso % (Auto) 0.0 (0.0-2.0) % Neut # (Auto) 5.5 (1.8-7.0) K/uL Lymph # (Auto) 1.8 (1.0-4.3) K/uL Fallon # (Auto) 1.3 H (0.0-0.8) K/uL Eos # (Auto) 0.2 (0.0-0.7) K/uL Baso # (Auto) 0.0 (0.0-0.2) K/uL APTT 51 H D (21-34) SECONDS Sodium (132-148) mmol/L Potassium (3.6-5.2) mmol/L Chloride (98-107) mmol/L Carbon Dioxide (22-30) mmol/L Anion Gap (10-20) BUN (9-20) mg/dL Creatinine (0.8-1.5) mg/dL Est GFR ( Amer) Est GFR (Non-Af Amer) POC Glucose (mg/dL) 126 H (65-110) mg/dL Random Glucose (75-110) mg/dL Calcium (8.6-10.4) mg/dl Phosphorus (2.5-4.5) mg/dL Magnesium (1.6-2.3) mg/dL Total Bilirubin (0.2-1.3) mg/dL AST (17-59) U/L ALT (21-72) U/L Alkaline Phosphatase (38-126) U/L Total Protein (6.3-8.3) g/dL Albumin (3.5-5.0) g/dL Globulin (2.2-3.9) gm/dL Albumin/Globulin Ratio (1.0-2.1) Valproic Acid (50.0-100.0) ug/mL 06/28/17 06/28/17 Range/Units 16:14 13:42 WBC (4.8-10.8) K/uL RBC (4.40-5.90) Mil/uL Hgb (12.0-18.0) g/dL Hct (35.0-51.0) % MCV (80.0-94.0) fL MCH (27.0-31.0) pg MCHC (33.0-37.0) g/dL RDW (11.5-14.5) % Plt Count (130-400) K/uL MPV (7.2-11.7) fL Neut % (Auto) (50.0-75.0) % Lymph % (Auto) (20.0-40.0) % Fallon % (Auto) (0.0-10.0) % Eos % (Auto) (0.0-4.0) % Baso % (Auto) (0.0-2.0) % Neut # (Auto) (1.8-7.0) K/uL Lymph # (Auto) (1.0-4.3) K/uL Fallon # (Auto) (0.0-0.8) K/uL Eos # (Auto) (0.0-0.7) K/uL Baso # (Auto) (0.0-0.2) K/uL APTT (21-34) SECONDS Sodium (132-148) mmol/L Potassium (3.6-5.2) mmol/L Chloride (98-107) mmol/L Carbon Dioxide (22-30) mmol/L Anion Gap (10-20) BUN (9-20) mg/dL Creatinine (0.8-1.5) mg/dL Est GFR ( Amer) Est GFR (Non-Af Amer) POC Glucose (mg/dL) 114 H (65-110) mg/dL Random Glucose (75-110) mg/dL Calcium (8.6-10.4) mg/dl Phosphorus (2.5-4.5) mg/dL Magnesium (1.6-2.3) mg/dL Total Bilirubin (0.2-1.3) mg/dL AST (17-59) U/L ALT (21-72) U/L Alkaline Phosphatase (38-126) U/L Total Protein (6.3-8.3) g/dL Albumin (3.5-5.0) g/dL Globulin (2.2-3.9) gm/dL Albumin/Globulin Ratio (1.0-2.1) Valproic Acid 49.4 L (50.0-100.0) ug/mL Laboratory Results - last 24 hr 06/28/17 06/28/17 06/28/17 13:42 16:14 21:11 WBC RBC Hgb Hct MCV MCH MCHC RDW Plt Count MPV Neut % (Auto) Lymph % (Auto) Fallon % (Auto) Eos % (Auto) Baso % (Auto) Neut # (Auto) Lymph # (Auto) Fallon # (Auto) Eos # (Auto) Baso # (Auto) APTT Sodium Potassium Chloride Carbon Dioxide Anion Gap BUN Creatinine Est GFR ( Amer) Est GFR (Non-Af Amer) POC Glucose (mg/dL) 114 H 126 H Random Glucose Calcium Phosphorus Magnesium Total Bilirubin AST ALT Alkaline Phosphatase Total Protein Albumin Globulin Albumin/Globulin Ratio Valproic Acid 49.4 L 06/29/17 06/29/17 06/29/17 06:18 06:18 06:19 WBC 8.7 RBC 4.54 Hgb 13.8 Hct 39.9 MCV 87.9 MCH 30.5 MCHC 34.7 RDW 13.8 Plt Count 179 MPV 11.3 Neut % (Auto) 63.0 Lymph % (Auto) 19.0 L Fallon % (Auto) 15.0 H Eos % (Auto) 3.0 Baso % (Auto) 0.0 Neut # (Auto) 5.5 Lymph # (Auto) 1.8 Fallon # (Auto) 1.3 H Eos # (Auto) 0.2 Baso # (Auto) 0.0 APTT 51 H D Sodium 131 L Potassium 3.5 L Chloride 96 L Carbon Dioxide 28 Anion Gap 11 BUN 21 H Creatinine 1.2 Est GFR ( Amer) > 60 Est GFR (Non-Af Amer) > 60 POC Glucose (mg/dL) Random Glucose 114 H Calcium 9.1 Phosphorus 3.3 Magnesium 1.8 Total Bilirubin 0.4 AST 37 ALT 23 Alkaline Phosphatase 44 Total Protein 6.9 Albumin 3.6 Globulin 3.2 Albumin/Globulin Ratio 1.1 Valproic Acid 06/29/17 06/29/17 07:20 11:20 WBC RBC Hgb Hct MCV MCH MCHC RDW Plt Count MPV Neut % (Auto) Lymph % (Auto) Fallon % (Auto) Eos % (Auto) Baso % (Auto) Neut # (Auto) Lymph # (Auto) Fallon # (Auto) Eos # (Auto) Baso # (Auto) APTT Sodium Potassium Chloride Carbon Dioxide Anion Gap BUN Creatinine Est GFR ( Amer) Est GFR (Non-Af Amer) POC Glucose (mg/dL) 112 H 111 H Random Glucose Calcium Phosphorus Magnesium Total Bilirubin AST ALT Alkaline Phosphatase Total Protein Albumin Globulin Albumin/Globulin Ratio Valproic Acid Fingerstick Blood Sugar Results: 126 Critical Care Progress Note - Nutrition Nutrition: Nutrition Category Date Time Status NPO Diet [DIET] Diets 06/29/17 Lunch Active Assessment/Plan - Assessment and Plan (Free Text) Assessment: 52M NSTEMI Plan: Psych: Schizophrenia, depression ([place]) Viibryd 20mg PO QD Risperidone 1mg PO BID Depakote 500mg PO TID Cardio: NSTEMI, Paroxysmal AFib, HTN, HLD ([place]) ASA 81mg PO QD Chlorthalidone 25mg PO QD Plavix 75mg PO QD Heparin 25,000 units Metoprolol 12.5mg PO BID Crestor 40mg PO QHS To have cardiac cath today with Dr. Sargent - NPO after breakfast Pulm: Asthma (not active problem) GI: no active problems Renal: no active problems Endo: DM2 Insulin Sliding scale Glimepiride 2mg PO QD Januvia 50mg PO QD Electrolytes: Hypokalemia kdur Prophylaxis: Pepcid 20mg PO QD, SCD <Max Khan S - Last Filed: 06/29/17 17:27> CCU Objective - Vital Signs / Intake & Output Vital Signs (Last 4 hours): Vital Signs Temp Pulse Resp 06/29/17 16:00 98.2 F 91 H 25 H 06/29/17 15:00 99 H 12 06/29/17 14:00 91 H 37 H Intake and Output (Last 8hrs): Intake & Output 06/29/17 06/29/17 06/29/17 06:59 14:59 22:59 Intake Total 585.85 54.0 Output Total 600 900 Balance -14.15 -846.0 Weight 244 lb 11.41 oz Intake: IV 250 Intake, IV Amount 95.85 54.0 Left Antecubital 95.85 54.0 Oral 240 Output: Urine 600 900 Urine, Voided 600 900 Other: # Voids Urine, Voided 2 - Medications Active Medications: Active Medications Generic Name Dose Route Start Last Admin Trade Name Freq PRN Reason Stop Dose Admin Acetaminophen 650 mg 06/27/17 20:50 06/28/17 13:48 Tylenol 325mg Tab PO 650 mg Q6 PRN Administration Headache Aspirin 81 mg 06/28/17 10:00 06/29/17 09:47 Aspirin Chewable PO 81 mg DAILY [facility] Administration Chlorthalidone 25 mg 06/28/17 10:00 06/29/17 09:43 Hygroton PO 25 mg DAILY [facility] Administration Clopidogrel Bisulfate 75 mg 06/28/17 10:00 06/29/17 09:41 Plavix PO 75 mg DAILY [facility] Administration Divalproex Sodium 500 mg 06/28/17 14:00 06/29/17 14:[address] PO Not Given TID [facility] Famotidine 20 mg 06/27/17 21:30 06/29/17 09:43 Pepcid PO 20 mg DAILY [facility] Administration Glimepiride 2 mg 06/28/17 10:00 06/29/17 09:44 Amaryl PO Not Given DAILY [facility] Home Med 1 tab 06/29/17 10:00 Patient's Own Medication PO DAILY [facility] Heparin Sodium/Sodium Chloride 25,000 units in 250 mls @ 13.488 mls/hr 21:42 06/29/17 06:30 Heparin 79633 Units/250ml 1/2 Normal Saline IV 12 units/kg/hr .[id number] PRN 13.488 mls/hr ADJUST RATE PER PROTOCOL Administration Protocol 12 UNITS/KG/HR Insulin Human Regular 0 unit 06/27/17 22:00 06/29/17 16:23 Novolin R SC Not Given ACHS [facility] Protocol Metoprolol Tartrate 12.5 mg 06/27/17 18:00 06/29/17 09:43 Lopressor PO 12.5 mg BID [facility] Administration Risperidone 1 mg 06/27/17 18:00 06/29/17 09:41 Risperdal Tab PO 1 mg BID [facility] Administration Rosuvastatin Calcium 40 mg 06/27/17 22:00 06/28/17 21:45 Crestor PO 40 mg HS [facility] Administration Sitagliptin Phosphate 50 mg 06/28/17 10:00 06/29/17 09:44 Januvia PO Not Given DAILY [facility] - Patient Studies Lab Studies: Microbiology Studies 06/27/17 20:58 MRSA Culture (Admit) - Final Naris MRSA NOT DETECTED Lab Studies 06/29/17 06/29/17 06/29/17 Range/Units 11:20 07:20 06:19 WBC (4.8-10.8) K/uL RBC (4.40-5.90) Mil/uL Hgb (12.0-18.0) g/dL Hct (35.0-51.0) % MCV (80.0-94.0) fL MCH (27.0-31.0) pg MCHC (33.0-37.0) g/dL RDW (11.5-14.5) % Plt Count (130-400) K/uL MPV (7.2-11.7) fL Neut % (Auto) (50.0-75.0) % Lymph % (Auto) (20.0-40.0) % Fallon % (Auto) (0.0-10.0) % Eos % (Auto) (0.0-4.0) % Baso % (Auto) (0.0-2.0) % Neut # (Auto) (1.8-7.0) K/uL Lymph # (Auto) (1.0-4.3) K/uL Fallon # (Auto) (0.0-0.8) K/uL Eos # (Auto) (0.0-0.7) K/uL Baso # (Auto) (0.0-0.2) K/uL APTT (21-34) SECONDS Sodium 131 L (132-148) mmol/L Potassium 3.5 L (3.6-5.2) mmol/L Chloride 96 L (98-107) mmol/L Carbon Dioxide 28 (22-30) mmol/L Anion Gap 11 (10-20) BUN 21 H (9-20) mg/dL Creatinine 1.2 (0.8-1.5) mg/dL Est GFR ( Amer) > 60 Est GFR (Non-Af Amer) > 60 POC Glucose (mg/dL) 111 H 112 H (65-110) mg/dL Random Glucose 114 H (75-110) mg/dL Calcium 9.1 (8.6-10.4) mg/dl Phosphorus 3.3 (2.5-4.5) mg/dL Magnesium 1.8 (1.6-2.3) mg/dL Total Bilirubin 0.4 (0.2-1.3) mg/dL AST 37 (17-59) U/L ALT 23 (21-72) U/L Alkaline Phosphatase 44 (38-126) U/L Total Protein 6.9 (6.3-8.3) g/dL Albumin 3.6 (3.5-5.0) g/dL Globulin 3.2 (2.2-3.9) gm/dL Albumin/Globulin Ratio 1.1 (1.0-2.1) 06/29/17 06/29/17 06/28/17 Range/Units 06:18 06:18 21:11 WBC 8.7 (4.8-10.8) K/uL RBC 4.54 (4.40-5.90) Mil/uL Hgb 13.8 (12.0-18.0) g/dL Hct 39.9 (35.0-51.0) % MCV 87.9 (80.0-94.0) fL MCH 30.5 (27.0-31.0) pg MCHC 34.7 (33.0-37.0) g/dL RDW 13.8 (11.5-14.5) % Plt Count 179 (130-400) K/uL MPV 11.3 (7.2-11.7) fL Neut % (Auto) 63.0 (50.0-75.0) % Lymph % (Auto) 19.0 L (20.0-40.0) % Fallon % (Auto) 15.0 H (0.0-10.0) % Eos % (Auto) 3.0 (0.0-4.0) % Baso % (Auto) 0.0 (0.0-2.0) % Neut # (Auto) 5.5 (1.8-7.0) K/uL Lymph # (Auto) 1.8 (1.0-4.3) K/uL Fallon # (Auto) 1.3 H (0.0-0.8) K/uL Eos # (Auto) 0.2 (0.0-0.7) K/uL Baso # (Auto) 0.0 (0.0-0.2) K/uL APTT 51 H D (21-34) SECONDS Sodium (132-148) mmol/L Potassium (3.6-5.2) mmol/L Chloride (98-107) mmol/L Carbon Dioxide (22-30) mmol/L Anion Gap (10-20) BUN (9-20) mg/dL Creatinine (0.8-1.5) mg/dL Est GFR ( Amer) Est GFR (Non-Af Amer) POC Glucose (mg/dL) 126 H (65-110) mg/dL Random Glucose (75-110) mg/dL Calcium (8.6-10.4) mg/dl Phosphorus (2.5-4.5) mg/dL Magnesium (1.6-2.3) mg/dL Total Bilirubin (0.2-1.3) mg/dL AST (17-59) U/L ALT (21-72) U/L Alkaline Phosphatase (38-126) U/L Total Protein (6.3-8.3) g/dL Albumin (3.5-5.0) g/dL Globulin (2.2-3.9) gm/dL Albumin/Globulin Ratio (1.0-2.1) Laboratory Results - last 24 hr 06/28/17 06/29/17 06/29/17 21:11 06:18 06:18 WBC 8.7 RBC 4.54 Hgb 13.8 Hct 39.9 MCV 87.9 MCH 30.5 MCHC 34.7 RDW 13.8 Plt Count 179 MPV 11.3 Neut % (Auto) 63.0 Lymph % (Auto) 19.0 L Fallon % (Auto) 15.0 H Eos % (Auto) 3.0 Baso % (Auto) 0.0 Neut # (Auto) 5.5 Lymph # (Auto) 1.8 Fallon # (Auto) 1.3 H Eos # (Auto) 0.2 Baso # (Auto) 0.0 APTT 51 H D Sodium Potassium Chloride Carbon Dioxide Anion Gap BUN Creatinine Est GFR ( Amer) Est GFR (Non-Af Amer) POC Glucose (mg/dL) 126 H Random Glucose Calcium Phosphorus Magnesium Total Bilirubin AST ALT Alkaline Phosphatase Total Protein Albumin Globulin Albumin/Globulin Ratio 06/29/17 06/29/17 06/29/17 06:19 07:20 11:20 WBC RBC Hgb Hct MCV MCH MCHC RDW Plt Count MPV Neut % (Auto) Lymph % (Auto) Fallon % (Auto) Eos % (Auto) Baso % (Auto) Neut # (Auto) Lymph # (Auto) Fallon # (Auto) Eos # (Auto) Baso # (Auto) APTT Sodium 131 L Potassium 3.5 L Chloride 96 L Carbon Dioxide 28 Anion Gap 11 BUN 21 H Creatinine 1.2 Est GFR ( Amer) > 60 Est GFR (Non-Af Amer) > 60 POC Glucose (mg/dL) 112 H 111 H Random Glucose 114 H Calcium 9.1 Phosphorus 3.3 Magnesium 1.8 Total Bilirubin 0.4 AST 37 ALT 23 Alkaline Phosphatase 44 Total Protein 6.9 Albumin 3.6 Globulin 3.2 Albumin/Globulin Ratio 1.1 Critical Care Progress Note - Nutrition Nutrition: Nutrition Category Date Time Status NPO Diet [DIET] Diets 06/29/17 Lunch Active Attending/Attestation - Attestation I have personally seen and examined this patient.: Yes I have fully participated in the care of the patient.: Yes I have reviewed all pertinent clinical information: Yes Notes (Text): 06/29/17 17:26 patient seen and examined in the intensive care unit. Case discussed with staff in the morning around. Patient undergoing cardiac cath procedure On anticoagulation No further chest pain
[2017-06-29] MEDS ORDERED: DiphenhydrAMINE 50 mg/ml Inj ONE (17:45)
[2017-06-29] MEDS ORDERED: Lidocaine 2% Inj (20ml) ONE (17:45)
--- NOTE | 2017-06-29 19:30 | PN ---
DATE: SUBJECTIVE: The patient is seen in ICU bed #15. He was seen with his mother, who reports that her son is doing very well. Patient is not complaining of chest pain. Patient's mom also brought Viibryd to be continued in the hospital as the patient's meds is non-formulary. Patient is sleeping, eating well, and reports no psychosis, no suicidal ideation. His last Depakote level is 49.4, but clinically patient is doing well. PHYSICAL EXAMINATION VITAL SIGNS: Temperature 98.6, pulse rate is 89, blood pressure is 116/84, respiration is 20, and oxygen saturation is 95%. REVIEW OF SYSTEMS: GENERAL: Patient is seen with his mom in his room, calm, cooperative, offers no new complaints. He states he is sleeping better. SKIN: No diaphoresis. HEENT: No headache. No dizziness. NECK: Supple. RESPIRATORY: No dyspnea. CARDIOVASCULAR: No chest pain. GASTROINTESTINAL: No nausea or vomiting. He is eating well. EXTREMITIES: Patient is complaining of tremors. He is moving extremities. NEUROLOGIC: Alert and oriented x3. GENITOURINARY: No dysuria. LABORATORY DATA: His blood sugar is, the random blood sugar last was 111. Note, patient is on Risperdal; Risperdal can cause his blood sugar to go up. MENTAL STATUS EXAMINATION: Obese male who looks stated age, with history of schizophrenia, seen in his room, doing much better. Speech spontaneous. Affect is reactive. Oriented x3. Thought process, coherent. Thought content, no paranoia, no hallucinations, no suicidal ideation. Attention and memory seems to be fair. Insight and judgment fair. Impulse control is fair. IMPRESSION: History of chronic schizophrenia, stable, as well as history of chest pain, hypokalemia, diabetes. PLAN AND RECOMMENDATION: Patient is seen, meds reviewed. Continue present psych meds as ordered. Patient is currently in ICU. Continue Depakote 500 mg p.o. t.i.d. His last liver enzymes are within normal limit. Continue Risperdal, he is taking 1 mg twice a day and then the Viibryd 20 mg daily. Patient is already taking medications for diabetes. Patient is on Januvia and glimepiride. Note, Risperdal can cause diabetes, especially type 2 as a side effect. Patient needs his psych medications to keep him in control psych-aguirre. Jarad Sharma MD
[2017-06-29] MEDS: VIIBRYD 20 MG PO SCH (20:42)
--- NOTE | 2017-06-30 01:36 | PN ---
DATE: SUBJECTIVE: Today, patient is alert and awake. Seen early this morning and has denied any chest pain or shortness of breath. Patient is seen in ICU and waiting for cardiac cath this morning. PHYSICAL EXAMINATION: VITAL SIGNS: Patient has blood pressure that was 111/77, pulse is 93, respiration is 20, and temperature is 98.7. NECK: Supple. No JVD. LUNGS: There are some rales at the bases. HEART: Regular rate and rhythm. ABDOMEN: Soft, obese, and nontender. EXTREMITIES: There is pressure and pitting edema. LABORATORY DATA: Patient's blood test done has shown WBC 8.7, hemoglobin 13.8, hematocrit 39.9, and platelets 177. Chemistry shows sodium 131, potassium 3.5, chloride 96, BUN 21, creatinine 1.2, glucose 114, calcium 9.1. AST 37, ALT 23, alkaline phosphatase is 44, magnesium 1.8. Coag showed that the PTT was 51. In fact, this afternoon, the patient had a cardiac catheterization done, which has shown stenosis of the LAD, and ejection fraction was low at 30% and also as per Dr. Sargent, the flour mixer helper, patient was found to have an aortic aneurysm. PLAN: The plan of care was discussed with Dr. Sargent, the flour mixer helper, that we are going to stop the heparin and also we are going to give more blood pressure medication to keep the blood pressure at least below 120 systolic. Also, the flour mixer helper, Dr. Sargent, has contacted Dr. Gramajo, cardiothoracic surgeon of [facility], for possible transfer to [facility] for possible repair of the aortic aneurysm. So, in the meantime, we are going to continue to follow the patient in ICU. Eduardo Lopez MD
[2017-06-30 06:39] LABS: ALBUMIN 3.7 g/dL (3.5-5.0); ALT/SGPT 31 U/L (21-72); AST/SGOT 34 U/L (17-59); BLOOD UREA NITROGEN 20 mg/dL (9-20); CALCIUM 9.4 mg/dl (8.6-10.4); GFR AFRICAN-AMERICAN > 60; GFR NON-AFRICAN AMERICAN > 60
[2017-06-30 06:42] VITALS: TEMP 98.6
[2017-06-30 07:19] LABS: BASO # 0.1 K/uL (0.0-0.2); BASO % 0.7 % (0.0-2.0); EOS # 0.1 K/uL (0.0-0.7); EOS % 1.6 % (0.0-4.0); LYMPH # 1.7 K/uL (1.0-4.3); LYMPH % 17.9 % (20.0-40.0); MEAN CELL VOLUME 87.4 fL (80.0-94.0); MEAN CORPUSCULAR HEMOGLOBIN 30.6 pg (27.0-31.0); MEAN PLATELET VOLUME 9.8 fL (7.2-11.7); MONO # 1.1 K/uL (0.0-0.8); MONO % 11.9 % (0.0-10.0); NEUT # 6.5 K/uL (1.8-7.0); NEUT % 67.9 % (50.0-75.0); NRBC % 0.1 % (0.0-2.0); RBC 4.91 Mil/uL (4.40-5.90); RED CELL DISTRIBUTION WIDTH 13.7 % (11.5-14.5); WHITE BLOOD COUNT 9.5 K/uL (4.8-10.8)
--- NOTE | 2017-06-30 07:30 | CARDCATH ---
PROCEDURE DATE: PROCEDURE PERFORMED: Left heart catheterization. INDICATIONS: The patient is a 52-year-old male who is mentally challenged, presented because of chest pain, non-ST elevation myocardial infarction is ruled in. Echo was consistent with ischemic cardiomyopathy. Cardiac catheterization was performed. The procedure and its risks were explained to the patient and his mother. The mother finally consented on behalf of her son. DESCRIPTION OF PROCEDURE: After local infiltration with 1% lidocaine, a 6-Norwegian sheath was placed in the right femoral artery. Left and right coronary angiography were performed with 6-Norwegian JL4 and 6-Norwegian JR1 diagnostic catheter. Left ventriculogram and aortogram were performed with a 6-Norwegian pigtail catheter. The patient tolerated the procedure well without any complications. ANGIOGRAPHIC FINDINGS: Selective injection of left coronary artery revealed the left main to be a normal vessel. Left main trifurcated into medium-sized LAD, medium-sized ramus, and medium-sized circumflex artery. The entire left coronary circulation had no significant disease. 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 Also he had 80% stenosis in his proximal to mid segment as well as 80% distal stenosis. Left ventriculogram performed in the RIVAS projection, which revealed inferobasal hypokinesis. Overall ejection fraction estimated at 30%. Aortography performed in the KITTITIAN projection. It revealed normal aortic root size. There was no aortic insufficiency or dissection. 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 That aneurysm is torn, not a false aneurysm. There was no extravasation from that aneurysm. CONCLUSION: Significant coronary artery disease with significant stenosis of the proximal to mid right coronary artery as well distal right coronary artery with an aneurysm of sinus of Valsalva. CONDITIONS: The case was discussed with the patient's mother in detail. The case will be discussed with the primary physician, Dr. Eduardo Lopez, as well as cardiothoracic surgeon, Dr. Gramajo at [facility]. If the patient agrees, the patient will be transferred to [facility]. In the meantime, the patient will be placed on aspirin therapy. Subcutaneous Lovenox will be discontinued for now until cardiothoracic surgical evaluation. The patient will also be maintained on beta blockers. Prasanth Sargent MD cc: Eduardo Lopez MD
[2017-06-30 08:28] VITALS: O2SAT 94
--- NOTE | 2017-06-30 09:00 | CARD ---
APPROVED REPORT EKG Measurement Heart [id number] <Conclusion> Normal sinus rhythm Incomplete right bundle branch block Nonspecific ST and T wave abnormality Abnormal ECG
[2017-06-30] MEDS: (Novolin R) Insulin Human Regular 100 units/ml vial SC SCH ×2 (09:06→13:52)
[2017-06-30 09:15] VITALS: BP 111/73; PULSE 96; RESP 28
[2017-06-30] MEDS: Divalproex 500 mg DR Tab PO SCH ×2 (09:23→13:55)
[2017-06-30] MEDS: VIIBRYD 20 MG PO SCH (09:24)
--- NOTE | 2017-06-30 12:04 | PN ---
DATE: SUBJECTIVE: The patient denies he is doing better. Psych aguirre, he is stable, but the patient is aware that he might be going to [facility] for possible repair of aortic aneurysm. The patient is not complaining of chest pain at this time. PHYSICAL EXAMINATION: VITAL SIGNS: Temperature is 98.6, pulse rate is 96, blood pressure 111/72, respirations 21, oxygen sat is 94%. REVIEW OF SYSTEMS: GENERAL: He is alert and oriented x3, seen in ICU bed number 15. SKIN: No diaphoresis. HEENT: No headache. No dizziness. NECK: Supple. RESPIRATORY: No dyspnea. CARDIOVASCULAR: No chest pain. GASTROINTESTINAL: He is eating well. EXTREMITIES: Moving extremities. MUSCULOSKELETAL: Weakness improving. NEUROLOGIC: Alert and oriented x3. GENITOURINARY: No dysuria. He has been compliant with medications. He is sleeping and eating well. He is also fully aware that he might be going to [facility] for possible surgery for repair of aortic aneurysm. MENTAL STATUS EXAMINATION: A pale-looking male who looks stated age, alert and oriented x3. Speech is spontaneous. Affect is reactive. Mood is calm. Thought process, coherent. Thought content, no paranoia or hallucinations or suicidal or homicidal ideation. Attention and memory seem to be fair. Insight and judgment fair. Impulse control is fair. IMPRESSION: History of chronic schizophrenia, aortic aneurysm, history of chest pain. PLAN AND RECOMMENDATIONS: The patient is seen, medications reviewed. The patient has been taking his medications as prescribed, Viibryd, Risperdal, and Depakote. Continue treatment plan as outlined. The patient is medically stable to go for surgery. He is at his baseline. The patient, however, needs to take his psych medications. Jarad Sharma MD [facility]
--- NOTE | 2017-06-30 20:04 | PN ---
DATE: SUBJECTIVE: The patient denies chest pain or shortness of breath or back pain. The patient has no reports of groin bleeding. PHYSICAL EXAMINATION: VITAL SIGNS: Blood pressure 111/73, heart rate 96, temperature 98.6, respirations 23. HEENT: Normocephalic. NECK: No JVD. CHEST: Clear. HEART: S1 and S2 regular. EXTREMITIES: No groin hematoma. No edema. LABORATORY DATA: Hemoglobin and hematocrit of 16.0 and 42.9, white count 9.5, and platelet count of 210,000. Today's SMA-7 is within normal limits except for the glucose of 124. ASSESSMENT: 1. distal coronary artery disease involving the proximal to mid right coronary artery as well as the distal right coronary artery. 2. Aneurysm of right sinus of Valsalva. 3. Status post non-ST elevation myocardial infarction. 4. Severely depressed left ventricular systolic function. CONDITIONS: Continue current aspirin and Lopressor therapy. The patient is in the process of being transferred to [facility] under Dr. Gramajo and Dr. Lopez's services to get a surgical opinion about the aneurysm of sinus of Valsalva. Prasanth Sargent MD
--- NOTE | 2017-07-01 01:27 | PN ---
DATE: SUBJECTIVE: This patient was seen earlier this morning in the ICU. The patient denied any complaints. Denied any chest pain. No shortness of breath. No dizziness. No palpitations. PHYSICAL EXAMINATION: VITAL SIGNS: The patient had a blood pressure of 106/70, pulse is 98, respirations 20, and temperature is 98.6. HEENT: Head is normocephalic. LUNGS: Clear. HEART: Regular rate and rhythm. ABDOMEN: Soft. Nontender. No palpable mass. The patient is obese. EXTREMITIES: There is +1 pitting edema. No chronic changes of the lower extremity. PLAN: The case was discussed with his family and also was discussed with Dr. Sargent and the patient will be transferred to [facility] due to the aortic aneurysm. Eduardo Lopez MD
--- NOTE | 2017-07-01 06:29 | DS ---
HISTORY OF PRESENT ILLNESS: The patient is a 52-year-old male with history of diabetes and hypertension and schizophrenia and major depression. The patient was brought to the emergency room because the patient was complaining of some chest pain earlier in the morning, the patient was immediately to the emergency room, was receiving medication. HOSPITAL COURSE: In the emergency room, the patient is chest pain free, however, during the course of hospitalization, the patient was found to have a troponin very elevated. The troponin was 10, so the patient was transferred to ICU and had a consult with Dr. Sargent, the vice principal. The patient was found to have a cardiac catheterization done by Dr. Sargent, and the finding was that the patient has significant coronary artery disease with significant stenosis to mid right coronary artery as well as distal right coronary artery with aneurysm of sinus of Valsalva. The patient was put on medications and that contact was made with the cardiothoracic surgeon, Dr. Mchugh from [facility] who agreed to accept the patient for surgery. Case was discussed with mother the afternoon in detail, and now the patient is transferred to [facility]. Eduardo Lopze MD
== END 2017-06-30 14:00 | disposition short-term general hospital (02) | DRG 281 ==
LOC: C.ER 08:57 → C.9E 10:42 → C.6T 15:52 → C.9E 16:05 → C.5S 17:44 → OBSVTOIN 18:11 → C.9E 18:14 → C.9I 19:34
PROVIDERS: ADMIT Specialist; ATTEND Specialist
PROC: 4A023N7 Measurement of Cardiac Sampling and Pressure, Left Heart, Percutaneous Approach (ICD-10-PCS; principal; 2017-06-29)
PROC: B2151ZZ Fluoroscopy of Left Heart using Low Osmolar Contrast (ICD-10-PCS; 2017-06-29)
PROC: B2111ZZ Fluoroscopy of Multiple Coronary Arteries using Low Osmolar Contrast (ICD-10-PCS; 2017-06-29)
DX: I21.4 Non-ST elevation (NSTEMI) myocardial infarction (principal); I25.110 Atherosclerotic heart disease of native coronary artery with unstable angina pectoris; I10 Essential (primary) hypertension; I25.5 Ischemic cardiomyopathy; E11.9 Type 2 diabetes mellitus without complications; E87.6 Hypokalemia; Q25.49 Other congenital malformations of aorta; I48.0 Paroxysmal atrial fibrillation; J45.909 Unspecified asthma, uncomplicated; F20.9 Schizophrenia, unspecified; E66.9 Obesity, unspecified; E78.5 Hyperlipidemia, unspecified; E78.00 Pure hypercholesterolemia, unspecified; F17.200 Nicotine dependence, unspecified, uncomplicated; Z79.899 Other long term (current) drug therapy; Z79.82 Long term (current) use of aspirin